=== PATIENT | male | born 1975 | race Caucasian/White ===

== ENCOUNTER 2018-02-12 19:32 | Emergency (ER) | payer OTHER ==
[2018-02-12 20:39] LABS: ADD MAN DIFF? NO
[2018-02-12 20:40] LABS: WHITE BLOOD COUNT 9.9 10^3/ul (4.8-10.8)
[2018-02-12 20:40] LABS: BASOPHILS % 0.3 % (0.0-2.0); EOSINOPHILS % 0.2 % (0.0-7.0); HEMATOCRIT 34.6 % (42.0-52.0); LYMPHOCYTES # 1.3 10^3/ul (0.8-2.9); LYMPHOCYTES % 13.6 % (15.0-51.0); MEAN CORPUSCULAR HEMOGLOBIN 28.5 pg (29.0-33.0); MEAN CORPUSCULAR HGB CONC 34.7 g/dl (32.0-37.0); MEAN CORPUSCULAR VOLUME 82.2 fl (82.0-101.0); MEAN PLATELET VOLUME 9.2 fl (7.4-10.4); MONOCYTE # 1.3 10^3/ul (0.3-0.9); MONOCYTES % 13.6 % (0.0-11.0); NEUTROPHIL # 7.1 10^3/ul (1.6-7.5); PLATELET COUNT 284 10^3/UL (140-415); RED BLOOD COUNT 4.21 10^6/ul (4.70-6.10); RED CELL DISTRIBUTION WIDTH 12.9 % (11.5-14.5)
[2018-02-12] MEDS: ACETAMINOPHEN 325 MG TAB PO (20:41)
[2018-02-12] MEDS: ONDANSETRON 4 MG INJ IV (20:41)
[2018-02-12] MEDS: PIPER-TAZO 3.375 GM IV (PMX) 100 ML IVPB (20:41)
[2018-02-12] MEDS: morphine 4 MG/ML VIAL IV (20:41)
[2018-02-12] MEDS: SODIUM CHLORIDE 0.9% 1L BAG IV* (20:42)
[2018-02-12] MEDS: SOD CHLORIDE 0.9% 100 ML (20:55)
[2018-02-12] MEDS: IOHEXOL 300MG/ML 150 ML BTL (20:55)
[2018-02-12 21:01] LABS: LACTIC ACID 0.8 mmol/L (0.5-2.0)
[2018-02-12 21:16] LABS: INR 1.21; PROTIME 15.5 Sec (11.9-14.9); PT RATIO 1.2
[2018-02-12 21:17] LABS: PARTIAL THROMBOPLASTIN TIME 31.6 Sec (25.0-35.0)
[2018-02-12 21:23] LABS: ADD UMIC YES; UR ASCORBIC ACID 40 mg/dL (NEGATIVE); UR BILIRUBIN (Dip) 1+ mg/dL (NEGATIVE); UR BLOOD (Dip) NEGATIVE (NEGATIVE); UR CLARITY CLEAR (CLEAR); UR COLOR AMBER (YELLOW); UR GLUCOSE (Dip) 1+ mg/dL (NEGATIVE); UR KETONES (Dip) TRACE mg/dL (NEGATIVE); UR LEUKOCYTE ESTERASE (Dip) NEGATIVE Leu/ul (NEGATIVE); UR MUCUS MODERATE /HPF (NONE SEEN); UR NITRITE (Dip) NEGATIVE (NEGATIVE); UR RBC 4 /HPF (0-5); UR SPECIFIC GRAVITY (Dip) 1.025 (1.003-1.030); UR TOTAL PROTEIN (Dip) 1+ mg/dl (NEGATIVE); UR UROBILINOGEN (Dip) 2+ mg/dL (NEGATIVE); UR WBC 3 /HPF (0-5)
[2018-02-12] MEDS: OLANZAPINE (ODT) 5 MG TAB ODT (21:39)
[2018-02-12] MEDS: VANCOMYCIN 1 GM (PMX) 250 ML IVPB (21:40)
[2018-02-12 22:12] LABS: ALANINE AMINOTRANSFERASE 62 IU/L (13-69); ALBUMIN 3.5 g/dl (3.3-4.9); ALBUMIN/GLOBULIN RATIO 1.02; ALKALINE PHOSPHATASE 114 IU/L (42-121); ASPARTATE AMINO TRANSFERASE 60 IU/L (15-46); BILIRUBIN,INDIRECT 0.8 mg/dl (0-1.1); BILIRUBIN,TOTAL 0.8 mg/dl (0.2-1.3); BLOOD UREA NITROGEN 7 mg/dl (7-20); CALCIUM 9.2 mg/dl (8.4-10.2); CARBON DIOXIDE 29 mmol/L (21-31); CHLORIDE 97 mmol/L (97-110); CREATININE 0.58 mg/dl (0.61-1.24); GLUCOSE 195 mg/dl (70-220); POTASSIUM 3.5 mmol/L (3.5-5.1); TOTAL PROTEIN 6.9 g/dl (6.1-8.1)
[2018-02-12 22:17] LABS: ANION GAP 11 (8-16); SODIUM 133 mmol/L (135-144)
[2018-02-12 22:23] LABS: TROPONIN-I < 0.010 ng/ml (0.000-0.120)
[2018-02-12 22:27] LABS: LACTIC ACID 0.7 mmol/L (0.5-2.0)
== END 2018-02-13 02:23 | disposition short-term general hospital (02) ==
LOC: E/R 02-13 02:23 → FTE 19:32
DX: L02.01 Cutaneous abscess of face (principal); A41.9 Sepsis, unspecified organism; I10 Essential (primary) hypertension; E11.9 Type 2 diabetes mellitus without complications; F17.210 Nicotine dependence, cigarettes, uncomplicated; S02.602A Fracture of unspecified part of body of left mandible, initial encounter for closed fracture; Y08.89XA Assault by other specified means, initial encounter; Z79.84 Long term (current) use of oral hypoglycemic drugs
CPT/HCPCS: 36415; 70486; 70491; 71045; 80053; 81001; 83605; 84484; 85025; 85610; 85730; 87040; 87086; 93005; 96374; 96375; 99291-25

== ENCOUNTER 2018-02-21 16:35 | Inpatient (IN) | payer OTHER ==
[2018-02-21] MEDS: KETOROLAC 30 MG INJ IV (17:28)
[2018-02-21] MEDS: SODIUM CHLORIDE 0.9% 1L BAG IV* (17:28)
[2018-02-21 17:40] LABS: WHITE BLOOD COUNT 12.2 10^3/ul (4.8-10.8)
[2018-02-21 17:40] LABS: ABNORMAL IP MESSAGE 1; HEMATOCRIT 35.9 % (42.0-52.0); HEMOGLOBIN 11.8 g/dl (14.0-18.0); MEAN CORPUSCULAR HEMOGLOBIN 28.2 pg (29.0-33.0); MEAN CORPUSCULAR HGB CONC 32.9 g/dl (32.0-37.0); MEAN CORPUSCULAR VOLUME 85.7 fl (82.0-101.0); MEAN PLATELET VOLUME 9.3 fl (7.4-10.4); PLATELET COUNT 430 10^3/UL (140-415); POSITIVE DIFF @See below; RED BLOOD COUNT 4.19 10^6/ul (4.70-6.10); RED CELL DISTRIBUTION WIDTH 13.6 % (11.5-14.5)
[2018-02-21 17:48] LABS: ADD MAN DIFF? YES
[2018-02-21 18:00] LABS: INR 1.14; PROTIME 14.8 Sec (11.9-14.9); PT RATIO 1.2
[2018-02-21 18:00] LABS: LACTIC ACID 1.8 mmol/L (0.5-2.0)
[2018-02-21 18:01] LABS: ALANINE AMINOTRANSFERASE 35 IU/L (13-69); ALBUMIN 3.7 g/dl (3.3-4.9); ALKALINE PHOSPHATASE 114 IU/L (42-121); ANION GAP 14 (8-16); ASPARTATE AMINO TRANSFERASE 39 IU/L (15-46); BILIRUBIN,INDIRECT 0.5 mg/dl (0-1.1); BILIRUBIN,TOTAL 0.5 mg/dl (0.2-1.3); BLOOD UREA NITROGEN 29 mg/dl (7-20); CALCIUM 9.5 mg/dl (8.4-10.2); CARBON DIOXIDE 27 mmol/L (21-31); CHLORIDE 103 mmol/L (97-110); GLUCOSE 105 mg/dl (70-220); PARTIAL THROMBOPLASTIN TIME 28.7 Sec (25.0-35.0); POTASSIUM 4.5 mmol/L (3.5-5.1); SODIUM 139 mmol/L (135-144); TOTAL PROTEIN 7.4 g/dl (6.1-8.1)
[2018-02-21 18:09] LABS: CREATININE 2.41 mg/dl (0.61-1.24)
[2018-02-21 18:12] LABS: TROPONIN-I < 0.010 ng/ml (0.000-0.120)
[2018-02-21 18:56] LABS: EOSINOPHILS % (M) 1 % (0-7); GIANT THROMBO% (M) 1 % (0-0); LYMPHOCYTES #M 1.7 10^3/ul (0.8-2.9); LYMPHOCYTES % (M) 14 % (15-51); MONOCYTES % (M) 9 % (0-11); PLATELET ESTIMATE NORMAL; SEGMENTED NEUTROPHILS (M) % 76 % (39-77); SMUDGE%M 2 % (0-0)
[2018-02-21 19:53] LABS: ADD UMIC YES; UR AMORPHOUS CRYSTAL FEW /HPF (NONE SEEN); UR ASCORBIC ACID 20 mg/dL (NEGATIVE); UR BACTERIA MANY /HPF (NONE SEEN); UR BILIRUBIN (Dip) NEGATIVE (NEGATIVE); UR BLOOD (Dip) 1+ mg/dL (NEGATIVE); UR CLARITY TURBID (CLEAR); UR COLOR AMBER (YELLOW); UR GLUCOSE (Dip) 3+ mg/dL (NEGATIVE); UR KETONES (Dip) NEGATIVE (NEGATIVE); UR LEUKOCYTE ESTERASE (Dip) NEGATIVE Leu/ul (NEGATIVE); UR MUCUS MODERATE /HPF (NONE SEEN); UR NITRITE (Dip) NEGATIVE (NEGATIVE); UR RBC 8 /HPF (0-5); UR SPECIFIC GRAVITY (Dip) 1.008 (1.003-1.030); UR TOTAL PROTEIN (Dip) NEGATIVE (NEGATIVE); UR UROBILINOGEN (Dip) NEGATIVE (NEGATIVE); UR WBC 7 /HPF (0-5)
[2018-02-21 20:43] LABS: LACTIC ACID 1.2 mmol/L (0.5-2.0)
[2018-02-21 21:38] LABS: LACTIC ACID 1.4 mmol/L (0.5-2.0)
[2018-02-21] MEDS: PIPER-TAZO 3.375 GM IV (PMX) 100 ML IVPB (21:42)
[2018-02-21] MEDS: VANCOMYCIN 1 GM (PMX) 250 ML IVPB (22:27)
[2018-02-21] MEDS ORDERED: NACL 0.9% 3 ML SYG IV (23:00)
[2018-02-21] MEDS ORDERED: VANCOMYCIN IV PER PHARMACY XX (23:00)
[2018-02-21] MEDS ORDERED: ACETAMINOPHEN 650 MG SUPP PR (23:00)
[2018-02-21] MEDS ORDERED: ONDANSETRON 4 MG INJ IV (23:00)
[2018-02-21] MEDS: morphine 4 MG/ML VIAL IV (23:23)
[2018-02-22] MEDS: PIPER-TAZO 3.375 GM IV (PMX) 100 ML IVPB ×2 (00:40→05:37)
[2018-02-22] MEDS: SOD CHLORIDE 0.9% 1,000 ML IV (00:41)
[2018-02-22] MEDS: morphine 2 MG INJ IV (02:45)
[2018-02-22] MEDS: CLINDAMYCIN 600 MG/D5W (PMX) 50 ML IVPB ×2 (02:46→05:36)
[2018-02-22 05:28] LABS: ADD MAN DIFF? NO
[2018-02-22 05:36] LABS: BASOPHILS % 0.5 % (0.0-2.0); EOSINOPHILS # 0.2 10^3/ul (0.0-0.5); EOSINOPHILS % 2.3 % (0.0-7.0); HEMATOCRIT 33.4 % (42.0-52.0); LYMPHOCYTES # 2.5 10^3/ul (0.8-2.9); LYMPHOCYTES % 38.1 % (15.0-51.0); MEAN CORPUSCULAR HGB CONC 32.9 g/dl (32.0-37.0); MEAN PLATELET VOLUME 9.4 fl (7.4-10.4); MONOCYTE # 0.8 10^3/ul (0.3-0.9); NEUTROPHILS % 46.8 % (39.0-77.0); PLATELET COUNT 335 10^3/UL (140-415); RED BLOOD COUNT 3.93 10^6/ul (4.70-6.10); RED CELL DISTRIBUTION WIDTH 13.8 % (11.5-14.5)
[2018-02-22 05:36] LABS: WHITE BLOOD COUNT 6.4 10^3/ul (4.8-10.8)
[2018-02-22 05:54] LABS: HEMOGLOBIN A1C 7.5 % (0-5.9)
[2018-02-22 05:56] LABS: ALANINE AMINOTRANSFERASE 33 IU/L (13-69); ALBUMIN 3.3 g/dl (3.3-4.9); ALKALINE PHOSPHATASE 97 IU/L (42-121); ANION GAP 10 (8-16); ASPARTATE AMINO TRANSFERASE 35 IU/L (15-46); BILIRUBIN,INDIRECT 0.6 mg/dl (0-1.1); BILIRUBIN,TOTAL 0.6 mg/dl (0.2-1.3); BLOOD UREA NITROGEN 23 mg/dl (7-20); CALCIUM 8.9 mg/dl (8.4-10.2); CARBON DIOXIDE 29 mmol/L (21-31); CHLORIDE 101 mmol/L (97-110); CHOL/HDL RATIO 3.7 RATIO; CHOLESTEROL 123 mg/dl (100-200); CREATININE 1.15 mg/dl (0.61-1.24); GLUCOSE 133 mg/dl (70-220); HDL CHOLESTEROL 33 mg/dl (27-67); LDL CHOLESTEROL,CALCULATED 77 mg/dl; MAGNESIUM 2.2 mg/dl (1.7-2.5); SODIUM 136 mmol/L (135-144); TOTAL PROTEIN 6.6 g/dl (6.1-8.1); TRIGLYCERIDES 67 mg/dl (0-149)
[2018-02-22 06:17] LABS: THYROID STIMULATING HORMONE 0.552 MIU/L (0.465-4.680)
[2018-02-22] MEDS ORDERED: BUSPIRONE 5 MG TAB PO (09:00)
[2018-02-22] MEDS ORDERED: LISINOPRIL 20 MG TAB PO (09:00)
[2018-02-22] MEDS ORDERED: VANCOMYCIN 1.5 GM in SOD CHLORIDE 0.9% 250 ML IVPB (15:00)
[2018-02-22] MEDS ORDERED: HALOPERIDOL 5 MG TAB PO (21:00)
[2018-02-22] MEDS ORDERED: ATORVASTATIN 40 MG TAB PO (21:00)
== END 2018-02-22 06:25 | disposition left against medical advice (07) | DRG 872 ==
LOC: 6WM 22:47 → E/R 16:35
DX: A41.9 Sepsis, unspecified organism (principal); F22 Delusional disorders; J98.2 Interstitial emphysema; I10 Essential (primary) hypertension; E11.9 Type 2 diabetes mellitus without complications; E78.5 Hyperlipidemia, unspecified; M27.2 Inflammatory conditions of jaws; F17.210 Nicotine dependence, cigarettes, uncomplicated; Z79.84 Long term (current) use of oral hypoglycemic drugs
CPT/HCPCS: 36415; 70486; 80053; 80061; 81001; 82962; 83036; 83605; 83735; 84443; 84484; 85025; 85610; 85730; 87040; 93005; 96365; 96375; 99291-25

== ENCOUNTER 2018-02-25 05:18 | Emergency (ER) | payer SELFPAY, OTHER | END 2018-02-25 07:31 | disposition left against medical advice (07) | LOC: FTE 05:18 | DX: Z53.21 Procedure and treatment not carried out due to patient leaving prior to being seen by health care provider (principal) ==

== ENCOUNTER 2018-03-02 11:56 | Emergency (ER) | payer OTHER | END 2018-03-02 12:00 | disposition home or self-care (01) | LOC: FTE 11:56 | DX: T81.31XA Disruption of external operation (surgical) wound, not elsewhere classified, initial encounter (principal); E11.9 Type 2 diabetes mellitus without complications; Y79.8 Miscellaneous orthopedic devices associated with adverse incidents, not elsewhere classified; Z79.82 Long term (current) use of aspirin; Z79.84 Long term (current) use of oral hypoglycemic drugs | CPT/HCPCS: 99284; Z7502 ==

== ENCOUNTER 2018-03-06 15:44 | Emergency (ER) | payer OTHER ==
[2018-03-06] MEDS: HYDROCODONE/APAP (5/325) TAB PO (16:40)
== END 2018-03-06 16:54 | disposition home or self-care (01) ==
LOC: FTE 15:44
DX: R68.84 Jaw pain (principal)
CPT/HCPCS: 99283; Z7502

== ENCOUNTER 2018-03-09 14:48 | Emergency (ER) | payer SELFPAY, OTHER | END 2018-03-09 15:12 | disposition left against medical advice (07) | LOC: E/R 15:12 | DX: Z53.21 Procedure and treatment not carried out due to patient leaving prior to being seen by health care provider (principal) ==

== ENCOUNTER 2018-03-12 07:34 | Emergency (ER) | payer OTHER | END 2018-03-12 08:55 | disposition home or self-care (01) | LOC: FTE 07:34 | DX: K13.0 Diseases of lips (principal) | CPT/HCPCS: 99282; Z7502 ==

== ENCOUNTER 2018-03-19 02:31 | Emergency (ER) | payer SELFPAY | END 2018-03-19 04:40 | disposition left against medical advice (07) | LOC: FTE 02:31 | DX: Z53.21 Procedure and treatment not carried out due to patient leaving prior to being seen by health care provider (principal) ==

== ENCOUNTER 2018-03-22 23:18 | Emergency (ER) | payer OTHER | END 2018-03-23 00:32 | disposition home or self-care (01) | LOC: FTE 23:18 | DX: K13.79 Other lesions of oral mucosa (principal); E11.9 Type 2 diabetes mellitus without complications; Z79.84 Long term (current) use of oral hypoglycemic drugs | CPT/HCPCS: 99282; Z7502 ==

== ENCOUNTER 2018-03-26 03:46 | Emergency (ER) | payer OTHER ==
[2018-03-26] MEDS: HYDROCODONE/APAP (5/325) TAB PO (04:22)
== END 2018-03-26 04:34 | disposition home or self-care (01) ==
LOC: FTE 04:34
DX: R68.84 Jaw pain (principal); E11.9 Type 2 diabetes mellitus without complications; F17.210 Nicotine dependence, cigarettes, uncomplicated; Z79.82 Long term (current) use of aspirin; Z79.84 Long term (current) use of oral hypoglycemic drugs; Z91.040 Latex allergy status
CPT/HCPCS: 99283; Z7610

== ENCOUNTER 2018-03-28 04:47 | Emergency (ER) | payer SELFPAY, OTHER | END 2018-03-28 07:17 | disposition left against medical advice (07) | LOC: FTE 07:17 | DX: Z53.21 Procedure and treatment not carried out due to patient leaving prior to being seen by health care provider (principal) ==

== ENCOUNTER 2018-03-29 21:58 | Emergency (ER) | payer SELFPAY, OTHER | END 2018-03-29 23:26 | disposition left against medical advice (07) | LOC: FTE 21:58 | DX: Z53.21 Procedure and treatment not carried out due to patient leaving prior to being seen by health care provider (principal) ==

== ENCOUNTER 2018-03-30 05:48 | Emergency (ER) | payer SELFPAY, OTHER | END 2018-03-30 07:20 | disposition left against medical advice (07) | LOC: FTE 07:20 | DX: Z53.21 Procedure and treatment not carried out due to patient leaving prior to being seen by health care provider (principal) ==

== ENCOUNTER 2018-04-01 13:55 | Emergency (ER) | payer SELFPAY | END 2018-04-01 17:40 | disposition left against medical advice (07) | LOC: FTE 13:55 | DX: Z53.21 Procedure and treatment not carried out due to patient leaving prior to being seen by health care provider (principal) ==

== ENCOUNTER 2018-04-02 03:22 | Emergency (ER) | payer SELFPAY | END 2018-04-02 08:32 | disposition left against medical advice (07) | LOC: FTE 03:22 | DX: Z53.21 Procedure and treatment not carried out due to patient leaving prior to being seen by health care provider (principal) ==

== ENCOUNTER 2018-04-06 04:17 | Emergency (ER) | payer OTHER | END 2018-04-06 04:38 | disposition home or self-care (01) | LOC: FTE 04:17 | DX: K13.79 Other lesions of oral mucosa (principal) | CPT/HCPCS: 99283; Z7502 ==

== ENCOUNTER 2018-04-10 09:51 | Emergency (ER) | payer OTHER ==
[2018-04-10] MEDS: ACETAMINOPHEN 500 MG TAB PO (11:13)
== END 2018-04-10 11:32 | disposition home or self-care (01) ==
LOC: FTE 09:51
DX: E11.621 Type 2 diabetes mellitus with foot ulcer (principal); L97.529 Non-pressure chronic ulcer of other part of left foot with unspecified severity; I10 Essential (primary) hypertension; Z79.82 Long term (current) use of aspirin; Z79.84 Long term (current) use of oral hypoglycemic drugs
CPT/HCPCS: 99283; Z7502

== ENCOUNTER 2018-04-11 04:19 | Emergency (ER) | payer SELFPAY, OTHER | END 2018-04-11 08:38 | disposition left against medical advice (07) | LOC: FTE 08:38 | DX: Z53.21 Procedure and treatment not carried out due to patient leaving prior to being seen by health care provider (principal) | CPT/HCPCS: 82962 ==

== ENCOUNTER 2018-04-15 22:53 | Emergency (ER) | payer SELFPAY | END 2018-04-16 00:55 | disposition left against medical advice (07) | LOC: FTE 22:53 | DX: Z53.21 Procedure and treatment not carried out due to patient leaving prior to being seen by health care provider (principal) ==

== ENCOUNTER 2018-04-17 02:56 | Emergency (ER) | payer OTHER ==
[2018-04-17] MEDS: IBUPROFEN 600 MG TAB PO (04:30)
== END 2018-04-17 04:30 | disposition home or self-care (01) ==
LOC: E/R 02:56
DX: L97.529 Non-pressure chronic ulcer of other part of left foot with unspecified severity (principal); E11.69 Type 2 diabetes mellitus with other specified complication; I10 Essential (primary) hypertension; Z79.82 Long term (current) use of aspirin; Z79.84 Long term (current) use of oral hypoglycemic drugs; Z91.040 Latex allergy status
CPT/HCPCS: 99282; Z7502

== ENCOUNTER 2018-04-18 03:39 | Emergency (ER) | payer SELFPAY, OTHER | END 2018-04-18 04:05 | disposition left against medical advice (07) | LOC: FTE 03:39 | DX: Z53.21 Procedure and treatment not carried out due to patient leaving prior to being seen by health care provider (principal) ==

== ENCOUNTER 2018-04-19 00:50 | Emergency (ER) | payer SELFPAY | END 2018-04-19 02:51 | disposition left against medical advice (07) | LOC: E/R 02:51 | DX: Z53.21 Procedure and treatment not carried out due to patient leaving prior to being seen by health care provider (principal) ==

== ENCOUNTER 2018-04-29 13:53 | Emergency (ER) | payer SELFPAY | END 2018-04-29 15:19 | disposition left against medical advice (07) | LOC: FTE 13:53 | DX: Z53.21 Procedure and treatment not carried out due to patient leaving prior to being seen by health care provider (principal) ==

== ENCOUNTER 2018-04-30 08:16 | Emergency (ER) | payer OTHER | END 2018-04-30 12:08 | disposition left against medical advice (07) | LOC: FTE 08:16 | DX: E11.621 Type 2 diabetes mellitus with foot ulcer (principal); L97.529 Non-pressure chronic ulcer of other part of left foot with unspecified severity; I10 Essential (primary) hypertension; Z79.82 Long term (current) use of aspirin; Z79.84 Long term (current) use of oral hypoglycemic drugs; Z91.040 Latex allergy status | CPT/HCPCS: 99283; Z7502 ==

== ENCOUNTER 2018-05-03 03:30 | Emergency (ER) | payer OTHER | END 2018-05-03 04:00 | disposition home or self-care (01) | LOC: FTE 03:30 | DX: E11.621 Type 2 diabetes mellitus with foot ulcer (principal); I10 Essential (primary) hypertension; F17.210 Nicotine dependence, cigarettes, uncomplicated; Z79.82 Long term (current) use of aspirin; Z79.84 Long term (current) use of oral hypoglycemic drugs | CPT/HCPCS: 99281 ==

== ENCOUNTER 2018-05-04 10:42 | Emergency (ER) | payer OTHER | END 2018-05-04 12:17 | disposition home or self-care (01) | LOC: E/R 10:42 | DX: S09.93XA Unspecified injury of face, initial encounter (principal); E11.9 Type 2 diabetes mellitus without complications; I10 Essential (primary) hypertension; X58.XXXA Exposure to other specified factors, initial encounter; Y92.9 Unspecified place or not applicable; Z79.82 Long term (current) use of aspirin; Z79.84 Long term (current) use of oral hypoglycemic drugs; Z91.040 Latex allergy status | CPT/HCPCS: 99282; Z7502 ==

== ENCOUNTER 2018-05-10 03:42 | Emergency (ER) | payer OTHER ==
[2018-05-10] MEDS: IBUPROFEN 600 MG TAB PO (04:12)
== END 2018-05-10 04:26 | disposition home or self-care (01) ==
LOC: FTE 03:42
DX: R68.84 Jaw pain (principal); I10 Essential (primary) hypertension; F17.210 Nicotine dependence, cigarettes, uncomplicated; E11.9 Type 2 diabetes mellitus without complications; Z79.82 Long term (current) use of aspirin; Z79.84 Long term (current) use of oral hypoglycemic drugs
CPT/HCPCS: 99282; Z7502

== ENCOUNTER 2018-05-18 06:22 | Emergency (ER) | payer SELFPAY, OTHER | END 2018-05-18 08:10 | disposition left against medical advice (07) | LOC: FTE 06:22 | DX: Z53.21 Procedure and treatment not carried out due to patient leaving prior to being seen by health care provider (principal) ==

== ENCOUNTER 2018-05-21 23:14 | Emergency (ER) | payer SELFPAY | END 2018-05-22 00:12 | disposition left against medical advice (07) | LOC: FTE 23:14 | DX: Z53.21 Procedure and treatment not carried out due to patient leaving prior to being seen by health care provider (principal) ==

== ENCOUNTER 2018-05-30 23:36 | Emergency (ER) | payer SELFPAY | END 2018-05-31 00:49 | disposition left against medical advice (07) | LOC: FTE 23:36 | DX: Z53.21 Procedure and treatment not carried out due to patient leaving prior to being seen by health care provider (principal) ==

== ENCOUNTER 2018-06-09 02:42 | Emergency (ER) | payer OTHER ==
[2018-06-09] MEDS ORDERED: KETOROLAC 60 MG INJ IM (02:56)
[2018-06-09] MEDS ORDERED: CLINDAMYCIN 600 MG INJ IM (03:00)
[2018-06-09] MEDS ORDERED: CLINDAMYCIN 300 MG INJ IM (03:30)
== END 2018-06-09 04:08 | disposition left against medical advice (07) ==
LOC: E/R 02:42
DX: R68.84 Jaw pain (principal); I10 Essential (primary) hypertension; E11.9 Type 2 diabetes mellitus without complications; Z79.82 Long term (current) use of aspirin; Z79.84 Long term (current) use of oral hypoglycemic drugs; Z87.891 Personal history of nicotine dependence
CPT/HCPCS: 99283; J1885

== ENCOUNTER 2018-06-12 14:47 | Emergency (ER) | payer SELFPAY, OTHER | END 2018-06-12 16:20 | disposition left against medical advice (07) | LOC: FTE 14:47 | DX: Z53.21 Procedure and treatment not carried out due to patient leaving prior to being seen by health care provider (principal) ==

== ENCOUNTER 2018-06-14 04:40 | Emergency (ER) | payer OTHER ==
[2018-06-14] MEDS: HYDROCODONE/APAP (5/325) TAB PO (05:13)
== END 2018-06-14 05:30 | disposition home or self-care (01) ==
LOC: FTE 04:40
DX: R68.84 Jaw pain (principal); I10 Essential (primary) hypertension; Z79.82 Long term (current) use of aspirin; Z79.84 Long term (current) use of oral hypoglycemic drugs; Z87.891 Personal history of nicotine dependence; Z91.040 Latex allergy status
CPT/HCPCS: 99283; Z7610

== ENCOUNTER 2018-06-23 02:14 | Emergency (ER) | payer OTHER | END 2018-06-23 02:40 | disposition home or self-care (01) | LOC: FTE 02:14 | DX: R68.84 Jaw pain (principal); R05 Cough; I10 Essential (primary) hypertension; F17.210 Nicotine dependence, cigarettes, uncomplicated; Z79.82 Long term (current) use of aspirin; Z79.84 Long term (current) use of oral hypoglycemic drugs | CPT/HCPCS: 99283; Z7502 ==

== ENCOUNTER 2018-06-29 11:53 | Emergency (ER) | payer SELFPAY, OTHER | END 2018-06-29 13:04 | disposition left against medical advice (07) | LOC: E/R 13:04 | DX: Z53.21 Procedure and treatment not carried out due to patient leaving prior to being seen by health care provider (principal) ==

== ENCOUNTER 2018-07-01 01:20 | Emergency (ER) | payer OTHER | END 2018-07-01 01:30 | disposition home or self-care (01) | LOC: E/R 01:20 | DX: R68.84 Jaw pain (principal); Z79.82 Long term (current) use of aspirin; Z79.84 Long term (current) use of oral hypoglycemic drugs | CPT/HCPCS: 99282; Z7502 ==

== ENCOUNTER 2018-07-17 09:07 | Inpatient (IN) | payer OTHER ==
[2018-07-17] MEDS: IBUPROFEN 800 MG TAB PO (09:37)
[2018-07-17 10:35] LABS: ADD MAN DIFF? NO
[2018-07-17] MEDS: SOD CHLORIDE 0.9% 1,000 ML IV (10:40)
[2018-07-17] MEDS: morphine 4 MG/ML VIAL IV (10:41)
[2018-07-17 10:48] LABS: WHITE BLOOD COUNT 7.5 10^3/ul (4.8-10.8)
[2018-07-17 10:48] LABS: BASOPHILS % 0.5 % (0.0-2.0); EOSINOPHILS # 0.3 10^3/ul (0.0-0.5); EOSINOPHILS % 3.7 % (0.0-7.0); HEMATOCRIT 41.1 % (42.0-52.0); HEMOGLOBIN 13.1 g/dl (14.0-18.0); LYMPHOCYTES # 1.2 10^3/ul (0.8-2.9); LYMPHOCYTES % 15.6 % (15.0-51.0); MEAN CORPUSCULAR HEMOGLOBIN 25.6 pg (29.0-33.0); MEAN CORPUSCULAR HGB CONC 31.9 g/dl (32.0-37.0); MEAN CORPUSCULAR VOLUME 80.3 fl (82.0-101.0); MONOCYTE # 0.8 10^3/ul (0.3-0.9); MONOCYTES % 10.7 % (0.0-11.0); NEUTROPHIL # 5.2 10^3/ul (1.6-7.5); PLATELET COUNT 243 10^3/UL (140-415); RED BLOOD COUNT 5.12 10^6/ul (4.70-6.10); RED CELL DISTRIBUTION WIDTH 15.6 % (11.5-14.5)
[2018-07-17 10:55] LABS: ALANINE AMINOTRANSFERASE 36 IU/L (13-69); ALBUMIN 4.2 g/dl (3.3-4.9); ALBUMIN/GLOBULIN RATIO 1.16; ALKALINE PHOSPHATASE 161 IU/L (42-121); ANION GAP 10 (5-13); ASPARTATE AMINO TRANSFERASE 27 IU/L (15-46); BILIRUBIN,INDIRECT 0.9 mg/dl (0-1.1); BILIRUBIN,TOTAL 0.9 mg/dl (0.2-1.3); BLOOD UREA NITROGEN 14 mg/dl (7-20); CALCIUM 9.7 mg/dl (8.4-10.2); CARBON DIOXIDE 31 mmol/L (21-31); CHLORIDE 101 mmol/L (97-110); CREATININE 0.55 mg/dl (0.61-1.24); Estimated GFR > 60 mL/min (>60); GLUCOSE 120 mg/dl (70-220); POTASSIUM 3.5 mmol/L (3.5-5.1); SODIUM 142 mmol/L (135-144); TOTAL PROTEIN 7.8 g/dl (6.1-8.1)
[2018-07-17 11:04] LABS: INR 1.02; PROTIME 13.5 Sec (11.9-14.9); PT RATIO 1.1
[2018-07-17 11:06] LABS: TROPONIN-I < 0.012 ng/ml (0.000-0.120)
[2018-07-17] MEDS ORDERED: ONDANSETRON 4 MG INJ IV ×2 (11:30→12:30)
[2018-07-17] MEDS ORDERED: ACETAMINOPHEN 325 MG TAB PO (11:30)
[2018-07-17] MEDS ORDERED: SOD CHLORIDE 0.45% 1,000 ML IV (12:08)
[2018-07-17] MEDS ORDERED: morphine 2 MG INJ IV (12:30)
[2018-07-17] MEDS ORDERED: NACL 0.9% 3 ML SYG IV (12:30)
[2018-07-17] MEDS ORDERED: GLUCAGON 1 MG INJ IM (13:00)
[2018-07-17] MEDS ORDERED: GLUCOSE GEL 15 GRAM TUBE PO ×2 (13:00)
[2018-07-17] MEDS ORDERED: GLUCOSE GEL 15 GRAM TUBE BUCCAL (13:00)
[2018-07-17] MEDS ORDERED: DEXTROSE 50% 50 ML SYRINGE IV ×2 (13:00)
[2018-07-17] MEDS: BUSPIRONE 10 MG TAB PO ×2 (13:00→20:16)
[2018-07-17] MEDS: morphine SULFATE/PF (2 MG/2 ML) SYG IV ×2 (14:34→20:15)
[2018-07-17 15:30] LABS: CREATINE KINASE 191 IU/L (23-200)
[2018-07-17 15:44] LABS: CK INDEX 2.6; TROPONIN-I < 0.012 ng/ml (0.000-0.120)
[2018-07-17 15:45] LABS: CK-MB 4.91 ng/ml (0.0-2.4)
[2018-07-17] MEDS: INSULIN ASPART [NOVOLOG] 3 ML PEN SC ×2 (18:34→20:29)
[2018-07-17] MEDS: SENNA TAB PO (20:16)
[2018-07-17] MEDS: ATORVASTATIN 40 MG TAB PO (20:16)
[2018-07-17] MEDS: HALOPERIDOL 5 MG TAB PO (21:47)
[2018-07-17 23:07] LABS: CREATINE KINASE 136 IU/L (23-200)
[2018-07-17 23:20] LABS: CK INDEX 2.9; TROPONIN-I < 0.012 ng/ml (0.000-0.120)
[2018-07-17 23:33] LABS: CK-MB 3.91 ng/ml (0.0-2.4)
[2018-07-18] MEDS: ACCU-CHEK XX (02:00)
[2018-07-18] MEDS: morphine SULFATE/PF (2 MG/2 ML) SYG IV ×2 (02:24→08:04)
[2018-07-18] MEDS: PANTOPRAZOLE (EC) 40 MG TAB PO (05:53)
[2018-07-18 06:13] LABS: ADD MAN DIFF? NO
[2018-07-18 06:15] LABS: BASOPHIL # 0.1 10^3/ul (0.0-0.1); BASOPHILS % 1.1 % (0.0-2.0); EOSINOPHILS # 0.4 10^3/ul (0.0-0.5); HEMATOCRIT 37.6 % (42.0-52.0); HEMOGLOBIN 12.1 g/dl (14.0-18.0); LYMPHOCYTES # 1.8 10^3/ul (0.8-2.9); LYMPHOCYTES % 28.3 % (15.0-51.0); MEAN CORPUSCULAR HEMOGLOBIN 25.5 pg (29.0-33.0); MEAN CORPUSCULAR HGB CONC 32.2 g/dl (32.0-37.0); MEAN CORPUSCULAR VOLUME 79.3 fl (82.0-101.0); MEAN PLATELET VOLUME 10.3 fl (7.4-10.4); MONOCYTE # 0.8 10^3/ul (0.3-0.9); MONOCYTES % 12.8 % (0.0-11.0); NEUTROPHIL # 3.3 10^3/ul (1.6-7.5); NEUTROPHILS % 51.5 % (39.0-77.0); PLATELET COUNT 229 10^3/UL (140-415); RED BLOOD COUNT 4.74 10^6/ul (4.70-6.10); RED CELL DISTRIBUTION WIDTH 15.8 % (11.5-14.5)
[2018-07-18 06:15] LABS: WHITE BLOOD COUNT 6.5 10^3/ul (4.8-10.8)
[2018-07-18 06:58] LABS: ALANINE AMINOTRANSFERASE 26 IU/L (13-69); ALBUMIN 3.5 g/dl (3.3-4.9); ALBUMIN/GLOBULIN RATIO 0.97; ALKALINE PHOSPHATASE 134 IU/L (42-121); ANION GAP 7 (5-13); ASPARTATE AMINO TRANSFERASE 20 IU/L (15-46); BILIRUBIN,INDIRECT 0.3 mg/dl (0-1.1); BILIRUBIN,TOTAL 0.3 mg/dl (0.2-1.3); BLOOD UREA NITROGEN 17 mg/dl (7-20); CALCIUM 9.1 mg/dl (8.4-10.2); CARBON DIOXIDE 27 mmol/L (21-31); CHLORIDE 105 mmol/L (97-110); CHOL/HDL RATIO 3.2 RATIO; CHOLESTEROL 135 mg/dl (100-200); CREATININE 0.74 mg/dl (0.61-1.24); Estimated GFR > 60 mL/min (>60); GLUCOSE 173 mg/dl (70-220); HDL CHOLESTEROL 41 mg/dl (27-67); LDL CHOLESTEROL,CALCULATED 80 mg/dl; MAGNESIUM 1.7 mg/dl (1.7-2.5); PHOSPHORUS 4.5 mg/dl (2.5-4.9); POTASSIUM 3.9 mmol/L (3.5-5.1); SODIUM 139 mmol/L (135-144); TOTAL PROTEIN 7.1 g/dl (6.1-8.1); TRIGLYCERIDES 72 mg/dl (0-149)
[2018-07-18] MEDS: INSULIN ASPART [NOVOLOG] 3 ML PEN SC ×4 (08:00→21:00)
[2018-07-18 08:23] LABS: HEMOGLOBIN A1C 7.7 % (0-5.9)
[2018-07-18] MEDS: BUSPIRONE 10 MG TAB PO ×3 (09:00→21:20)
[2018-07-18] MEDS: LISINOPRIL 20 MG TAB PO (09:00)
[2018-07-18] MEDS: SENNA TAB PO ×2 (09:00→21:19)
[2018-07-18] MEDS ORDERED: morphine SULFATE/PF (10 MG/10 ML) INJ (12:36)
[2018-07-18] MEDS ORDERED: MIDAZOLAM 1 MG/ML 2 ML INJ (12:36)
[2018-07-18] MEDS ORDERED: LIDOCAINE 2% (SDV) 5 ML INJ (14:21)
[2018-07-18] MEDS ORDERED: PROPOFOL 20 ML (14:21)
[2018-07-18] MEDS ORDERED: ROCURONIUM 50 MG INJ (14:21)
[2018-07-18] MEDS ORDERED: CEFAZOLIN 1 GM INJ (14:21)
[2018-07-18] MEDS ORDERED: ONDANSETRON 4 MG INJ (14:21)
[2018-07-18] MEDS ORDERED: HYDROmorphONE 1 MG/5 ML IV SYRINGE IV ×2 (14:30)
[2018-07-18] MEDS ORDERED: FENTAnyl 50 MCG/ML VIAL IV (14:30)
[2018-07-18] MEDS ORDERED: ONDANSETRON 4 MG INJ IV (14:30)
[2018-07-18] MEDS ORDERED: DIPHENHYDRAMINE 50 MG INJ IV (14:30)
[2018-07-18] MEDS ORDERED: NACL 0.9% 3 ML SYG IV (14:30)
[2018-07-18] MEDS ORDERED: MEPERIDINE 25 MG INJ IV (14:30)
[2018-07-18] MEDS ORDERED: NALOXONE (0.4 MG/ML) INJ IV (15:00)
[2018-07-18] MEDS: SOD CHLORIDE 0.9% 1,000 ML IV (16:42)
[2018-07-18] MEDS: CEFAZOLIN 2 GM/50 ML (PMX) 50 ML IVPB (16:42)
[2018-07-18] MEDS: ATORVASTATIN 40 MG TAB PO (21:00)
[2018-07-18] MEDS: HALOPERIDOL 5 MG TAB PO (21:19)
[2018-07-19] MEDS: CEFAZOLIN 2 GM/50 ML (PMX) 50 ML IVPB ×2 (00:28→08:49)
[2018-07-19] MEDS: ACCU-CHEK XX (01:56)
[2018-07-19] MEDS: SOD CHLORIDE 0.9% 1,000 ML IV (02:48)
[2018-07-19] MEDS: PANTOPRAZOLE (EC) 40 MG TAB PO (06:00)
[2018-07-19] MEDS: INSULIN ASPART [NOVOLOG] 3 ML PEN SC ×4 (08:00→20:20)
[2018-07-19] MEDS: BUSPIRONE 10 MG TAB PO ×3 (08:49→20:22)
[2018-07-19] MEDS: INFLUENZA VIRUS VACCINE 0.5 ML (DISPENSING) IM* (08:50)
[2018-07-19] MEDS: LISINOPRIL 20 MG TAB PO (08:50)
[2018-07-19] MEDS: SENNA TAB PO ×2 (08:50→20:22)
[2018-07-19] MEDS: ENOXAPARIN 40 MG/0.4 ML SYG SC (09:28)
[2018-07-19] MEDS: HALOPERIDOL 5 MG TAB PO ×2 (20:22→20:27)
[2018-07-19] MEDS: ATORVASTATIN 40 MG TAB PO (20:22)
[2018-07-20] MEDS: ACCU-CHEK XX (01:06)
[2018-07-20] MEDS: PANTOPRAZOLE (EC) 40 MG TAB PO (05:04)
[2018-07-20] MEDS: HYDROCODONE/APAP (5/325) TAB PO ×3 (07:40→20:30)
[2018-07-20] MEDS: ENOXAPARIN 40 MG/0.4 ML SYG SC (08:18)
[2018-07-20] MEDS: LISINOPRIL 20 MG TAB PO (08:18)
[2018-07-20] MEDS: SENNA TAB PO ×2 (08:19→20:49)
[2018-07-20] MEDS: INSULIN ASPART [NOVOLOG] 3 ML PEN SC ×4 (08:19→21:14)
[2018-07-20] MEDS: BUSPIRONE 10 MG TAB PO ×3 (08:20→20:48)
[2018-07-20] MEDS: HALOPERIDOL 5 MG TAB PO (20:49)
[2018-07-20] MEDS: ATORVASTATIN 40 MG TAB PO (20:49)
[2018-07-21] MEDS: HYDROCODONE/APAP (5/325) TAB PO ×3 (01:06→11:57)
[2018-07-21] MEDS: ACCU-CHEK XX (02:00)
[2018-07-21] MEDS: PANTOPRAZOLE (EC) 40 MG TAB PO (05:15)
[2018-07-21] MEDS: BUSPIRONE 10 MG TAB PO ×3 (08:03→20:38)
[2018-07-21] MEDS: LISINOPRIL 20 MG TAB PO (08:04)
[2018-07-21] MEDS: SENNA TAB PO ×2 (08:04→20:37)
[2018-07-21] MEDS: ENOXAPARIN 40 MG/0.4 ML SYG SC (08:28)
[2018-07-21] MEDS: INSULIN ASPART [NOVOLOG] 3 ML PEN SC ×5 (08:29→20:41)
[2018-07-21] MEDS: morphine 4 MG/ML VIAL IV (09:14)
[2018-07-21] MEDS ORDERED: morphine SULFATE/PF (2 MG/2 ML) SYG IV (11:30)
[2018-07-21 13:19] LABS: ADD MAN DIFF? NO
[2018-07-21 13:22] LABS: WHITE BLOOD COUNT 6.3 10^3/ul (4.8-10.8)
[2018-07-21 13:22] LABS: BASOPHIL # 0.1 10^3/ul (0.0-0.1); BASOPHILS % 0.8 % (0.0-2.0); EOSINOPHILS # 0.2 10^3/ul (0.0-0.5); EOSINOPHILS % 3.8 % (0.0-7.0); HEMATOCRIT 37.9 % (42.0-52.0); LYMPHOCYTES # 1.5 10^3/ul (0.8-2.9); LYMPHOCYTES % 24.3 % (15.0-51.0); MEAN CORPUSCULAR HEMOGLOBIN 25.6 pg (29.0-33.0); MEAN CORPUSCULAR HGB CONC 31.7 g/dl (32.0-37.0); MEAN CORPUSCULAR VOLUME 80.8 fl (82.0-101.0); MEAN PLATELET VOLUME 10.1 fl (7.4-10.4); MONOCYTE # 0.8 10^3/ul (0.3-0.9); MONOCYTES % 13.4 % (0.0-11.0); NEUTROPHIL # 3.6 10^3/ul (1.6-7.5); NEUTROPHILS % 57.4 % (39.0-77.0); PLATELET COUNT 236 10^3/UL (140-415); RED BLOOD COUNT 4.69 10^6/ul (4.70-6.10); RED CELL DISTRIBUTION WIDTH 15.5 % (11.5-14.5)
[2018-07-21 13:41] LABS: ANION GAP 9 (5-13); BLOOD UREA NITROGEN 16 mg/dl (7-20); CALCIUM 9.7 mg/dl (8.4-10.2); CARBON DIOXIDE 31 mmol/L (21-31); CHLORIDE 97 mmol/L (97-110); CREATININE 0.62 mg/dl (0.61-1.24); Estimated GFR > 60 mL/min (>60); GLUCOSE 245 mg/dl (70-220); POTASSIUM 4.8 mmol/L (3.5-5.1); SODIUM 137 mmol/L (135-144)
[2018-07-21] MEDS: morphine LIQ (10 MG/5 ML) CUP PO (18:09)
[2018-07-21] MEDS: ATORVASTATIN 40 MG TAB PO (20:34)
[2018-07-21] MEDS: HALOPERIDOL 5 MG TAB PO (20:38)
[2018-07-21] MEDS: INSULIN GLARGINE [LANTus] (100 UNITS/ML) SYG SC (20:44)
[2018-07-22] MEDS: ACCU-CHEK XX (02:00)
[2018-07-22] MEDS: PANTOPRAZOLE (EC) 40 MG TAB PO (05:36)
[2018-07-22] MEDS: morphine LIQ (10 MG/5 ML) CUP PO ×4 (05:36→20:43)
[2018-07-22] MEDS: INSULIN ASPART [NOVOLOG] 3 ML PEN SC ×7 (08:21→20:37)
[2018-07-22] MEDS: ENOXAPARIN 40 MG/0.4 ML SYG SC (08:22)
[2018-07-22] MEDS: LISINOPRIL 20 MG TAB PO (08:24)
[2018-07-22] MEDS: SENNA TAB PO ×2 (08:24→20:38)
[2018-07-22] MEDS: BUSPIRONE 10 MG TAB PO ×3 (08:24→20:38)
[2018-07-22] MEDS: INSULIN GLARGINE [LANTus] (100 UNITS/ML) SYG SC (20:36)
[2018-07-22] MEDS: ATORVASTATIN 40 MG TAB PO (20:38)
[2018-07-22] MEDS: HALOPERIDOL 5 MG TAB PO (20:38)
[2018-07-23] MEDS: ACCU-CHEK XX (02:11)
[2018-07-23] MEDS: morphine LIQ (10 MG/5 ML) CUP PO (02:11)
[2018-07-23] MEDS: INSULIN ASPART [NOVOLOG] 3 ML PEN SC ×5 (02:52→13:23)
[2018-07-23] MEDS: HYDROCODONE/APAP (5/325) TAB PO ×2 (04:59→12:39)
[2018-07-23] MEDS: PANTOPRAZOLE (EC) 40 MG TAB PO (04:59)
[2018-07-23] MEDS: SENNA TAB PO (08:35)
[2018-07-23] MEDS: BUSPIRONE 10 MG TAB PO ×2 (08:36→12:40)
[2018-07-23] MEDS: LISINOPRIL 20 MG TAB PO (08:37)
[2018-07-23] MEDS: ENOXAPARIN 40 MG/0.4 ML SYG SC (08:41)
== END 2018-07-23 17:25 | disposition home health service (06) | DRG 481 ==
LOC: E/R 09:07 → 2NE 11:10
PROC: 0QS706Z Reposition Left Upper Femur with Intramedullary Internal Fixation Device, Open Approach (ICD-10-PCS; principal; 2018-07-18 12:00)
DX: S72.142A Displaced intertrochanteric fracture of left femur, initial encounter for closed fracture (principal); E44.0 Moderate protein-calorie malnutrition; Z68.1 Body mass index [BMI] 19.9 or less, adult; I10 Essential (primary) hypertension; E11.9 Type 2 diabetes mellitus without complications; E78.5 Hyperlipidemia, unspecified; W11.XXXA Fall on and from ladder, initial encounter; F99 Mental disorder, not otherwise specified
CPT/HCPCS: 36415; 71045; 73500; 73510; 73530; 73550; 73700; 80048; 80053; 80061; 82550; 82553; 82962; 83036; 83735; 84100; 84443; 84484; 85025; 85610; 85730; 93005; 96374; 97110; 97116; 97161; 97530; 99291-25

== ENCOUNTER 2018-08-08 23:53 | Emergency (ER) | payer OTHER ==
[2018-08-09] MEDS: HYDROCODONE/APAP (10/325) TAB PO (01:06)
== END 2018-08-09 01:47 | disposition home or self-care (01) ==
LOC: E/R 23:53
DX: M25.552 Pain in left hip (principal); I10 Essential (primary) hypertension; F17.210 Nicotine dependence, cigarettes, uncomplicated; Z79.82 Long term (current) use of aspirin; Z79.84 Long term (current) use of oral hypoglycemic drugs; Z91.040 Latex allergy status
CPT/HCPCS: 99283; Z7502

== ENCOUNTER 2018-08-11 17:50 | Emergency (ER) | payer OTHER ==
[2018-08-11] MEDS: HYDROCODONE/APAP (5/325) TAB PO (21:19)
== END 2018-08-11 21:49 | disposition home or self-care (01) ==
LOC: FTE 17:50
DX: G89.29 Other chronic pain (principal); E11.9 Type 2 diabetes mellitus without complications; Z79.82 Long term (current) use of aspirin; Z79.84 Long term (current) use of oral hypoglycemic drugs
CPT/HCPCS: 99283; Z7502

== ENCOUNTER 2018-08-14 07:26 | Emergency (ER) | payer OTHER | END 2018-08-14 08:38 | disposition left against medical advice (07) | LOC: FTE 08:38 | DX: Z53.21 Procedure and treatment not carried out due to patient leaving prior to being seen by health care provider (principal) ==

== ENCOUNTER 2018-08-15 21:15 | Emergency (ER) | payer OTHER ==
[2018-08-16] MEDS ORDERED: HYDROCODONE/APAP (5/325) TAB PO (01:00)
== END 2018-08-16 01:23 | disposition home or self-care (01) ==
LOC: FTE 21:15
DX: G89.29 Other chronic pain (principal); E11.9 Type 2 diabetes mellitus without complications; Z79.82 Long term (current) use of aspirin; Z79.84 Long term (current) use of oral hypoglycemic drugs
CPT/HCPCS: 99282; Z7502

== ENCOUNTER 2018-08-20 21:27 | Emergency (ER) | payer SELFPAY, OTHER | END 2018-08-20 23:00 | disposition left against medical advice (07) | LOC: E/R 21:27 | DX: Z53.21 Procedure and treatment not carried out due to patient leaving prior to being seen by health care provider (principal) ==

== ENCOUNTER 2018-09-04 00:44 | Emergency (ER) | payer OTHER ==
[2018-09-04] MEDS: morphine 4 MG/ML VIAL IM (02:25)
[2018-09-04] MEDS: KETOROLAC 30 MG INJ IM (02:25)
== END 2018-09-04 03:34 | disposition left against medical advice (07) ==
LOC: FTE 00:44
DX: M25.552 Pain in left hip (principal); R68.84 Jaw pain; M54.42 Lumbago with sciatica, left side; Z79.82 Long term (current) use of aspirin; Z79.84 Long term (current) use of oral hypoglycemic drugs
CPT/HCPCS: 96372; 99284-25

== ENCOUNTER 2018-10-21 00:04 | Emergency (ER) | payer SELFPAY, OTHER | END 2018-10-21 02:00 | disposition left against medical advice (07) | LOC: FTE 00:04 | DX: Z53.21 Procedure and treatment not carried out due to patient leaving prior to being seen by health care provider (principal) | CPT/HCPCS: 82962 ==

== ENCOUNTER 2018-10-23 03:30 | Emergency (ER) | payer OTHER | END 2018-10-23 06:59 | disposition left against medical advice (07) | LOC: FTE 03:30 | DX: Z48.01 Encounter for change or removal of surgical wound dressing (principal) | CPT/HCPCS: 99281; Z7502 ==

== ENCOUNTER 2018-11-02 00:45 | Emergency (ER) | payer SELFPAY, OTHER | END 2018-11-02 02:00 | disposition left against medical advice (07) | LOC: FTE 00:45 | DX: Z53.21 Procedure and treatment not carried out due to patient leaving prior to being seen by health care provider (principal) ==

== ENCOUNTER 2018-11-13 12:46 | Emergency (ER) | payer OTHER ==
[2018-11-13] MEDS: IBUPROFEN 600 MG TAB PO (13:28)
[2018-11-13] MEDS: MUPIROCIN 2% 22 GM OINT TOP (13:28)
== END 2018-11-13 13:29 | disposition home or self-care (01) ==
LOC: E/R 12:46
DX: J00 Acute nasopharyngitis [common cold] (principal); E11.9 Type 2 diabetes mellitus without complications; S90.512A Abrasion, left ankle, initial encounter; X58.XXXA Exposure to other specified factors, initial encounter; Y92.9 Unspecified place or not applicable; Z79.82 Long term (current) use of aspirin; Z79.84 Long term (current) use of oral hypoglycemic drugs; Z91.040 Latex allergy status
CPT/HCPCS: 99283; Z7502

== ENCOUNTER 2018-11-15 01:48 | Emergency (ER) | payer OTHER ==
[2018-11-15] MEDS: IBUPROFEN 600 MG TAB PO (03:44)
== END 2018-11-15 05:35 | disposition home or self-care (01) ==
LOC: FTE 01:48
DX: S90.811A Abrasion, right foot, initial encounter (principal); F17.210 Nicotine dependence, cigarettes, uncomplicated; X58.XXXA Exposure to other specified factors, initial encounter; Y92.9 Unspecified place or not applicable; Z91.040 Latex allergy status; Z79.82 Long term (current) use of aspirin; Z79.84 Long term (current) use of oral hypoglycemic drugs
CPT/HCPCS: 99282; Z7610

== ENCOUNTER 2018-12-04 04:05 | Emergency (ER) | payer SELFPAY, OTHER | END 2018-12-04 07:17 | disposition left against medical advice (07) | LOC: FTE 04:05 | DX: Z53.21 Procedure and treatment not carried out due to patient leaving prior to being seen by health care provider (principal) ==

== ENCOUNTER 2018-12-05 04:52 | Emergency (ER) | payer OTHER | END 2018-12-05 06:12 | disposition home or self-care (01) | LOC: FTE 04:52 | DX: B35.1 Tinea unguium (principal); E11.9 Type 2 diabetes mellitus without complications; Z79.82 Long term (current) use of aspirin; Z79.84 Long term (current) use of oral hypoglycemic drugs; Z87.891 Personal history of nicotine dependence; Z91.040 Latex allergy status | CPT/HCPCS: 99283; Z7502 ==

== ENCOUNTER 2018-12-10 04:12 | Emergency (ER) | payer OTHER | END 2018-12-10 06:25 | disposition home or self-care (01) | LOC: FTE 06:25 | DX: B35.3 Tinea pedis (principal); E11.9 Type 2 diabetes mellitus without complications; Z79.82 Long term (current) use of aspirin; Z79.84 Long term (current) use of oral hypoglycemic drugs; Z87.891 Personal history of nicotine dependence | CPT/HCPCS: 73630; 73630-50; 99284-25 ==

== ENCOUNTER 2018-12-12 02:55 | Emergency (ER) | payer SELFPAY, OTHER | END 2018-12-12 03:00 | disposition left against medical advice (07) | LOC: E/R 02:55 | DX: Z53.21 Procedure and treatment not carried out due to patient leaving prior to being seen by health care provider (principal) ==

== ENCOUNTER 2018-12-15 15:41 | Emergency (ER) | payer SELFPAY, OTHER | END 2018-12-15 17:00 | disposition left against medical advice (07) | LOC: FTE 15:41 | DX: Z53.21 Procedure and treatment not carried out due to patient leaving prior to being seen by health care provider (principal) ==

== ENCOUNTER 2018-12-16 14:12 | Emergency (ER) | payer SELFPAY, OTHER | END 2018-12-16 21:03 | disposition left against medical advice (07) | LOC: E/R 21:03 | DX: Z53.21 Procedure and treatment not carried out due to patient leaving prior to being seen by health care provider (principal) ==

== ENCOUNTER 2018-12-18 10:27 | Emergency (ER) | payer SELFPAY, OTHER | END 2018-12-18 10:52 | disposition left against medical advice (07) | LOC: E/R 10:52 | DX: Z53.21 Procedure and treatment not carried out due to patient leaving prior to being seen by health care provider (principal) ==

== ENCOUNTER 2018-12-20 01:55 | Emergency (ER) | payer SELFPAY | END 2018-12-20 04:15 | disposition left against medical advice (07) | LOC: E/R 01:55 | DX: Z53.21 Procedure and treatment not carried out due to patient leaving prior to being seen by health care provider (principal) ==

== ENCOUNTER 2018-12-22 01:50 | Emergency (ER) | payer OTHER | END 2018-12-22 03:16 | disposition left against medical advice (07) | LOC: FTE 03:16 | DX: Z53.21 Procedure and treatment not carried out due to patient leaving prior to being seen by health care provider (principal) ==

== ENCOUNTER 2019-01-04 20:03 | Emergency (ER) | payer SELFPAY, OTHER | END 2019-01-04 21:30 | disposition left against medical advice (07) | LOC: E/R 21:30 | DX: Z53.21 Procedure and treatment not carried out due to patient leaving prior to being seen by health care provider (principal) ==

== ENCOUNTER 2019-01-06 03:53 | Emergency (ER) | payer SELFPAY, OTHER | END 2019-01-06 05:08 | disposition left against medical advice (07) | LOC: FTE 05:08 | DX: Z53.21 Procedure and treatment not carried out due to patient leaving prior to being seen by health care provider (principal) ==

== ENCOUNTER 2019-01-08 14:31 | Emergency (ER) | payer SELFPAY, OTHER | END 2019-01-08 16:00 | disposition left against medical advice (07) | LOC: FTE 14:31 | DX: Z53.21 Procedure and treatment not carried out due to patient leaving prior to being seen by health care provider (principal) ==

== ENCOUNTER 2019-01-08 23:01 | Emergency (ER) | payer OTHER | END 2019-01-09 00:33 | disposition home or self-care (01) | LOC: FTE 23:01 | DX: E11.621 Type 2 diabetes mellitus with foot ulcer (principal); L97.519 Non-pressure chronic ulcer of other part of right foot with unspecified severity; Z79.82 Long term (current) use of aspirin; Z79.84 Long term (current) use of oral hypoglycemic drugs; Z87.891 Personal history of nicotine dependence; Z91.040 Latex allergy status | CPT/HCPCS: 99283 ==

== ENCOUNTER 2019-01-11 14:28 | Emergency (ER) | payer SELFPAY, OTHER | END 2019-01-11 18:26 | disposition left against medical advice (07) | LOC: FTE 14:28 | DX: Z53.21 Procedure and treatment not carried out due to patient leaving prior to being seen by health care provider (principal) ==

== ENCOUNTER 2019-01-12 01:13 | Emergency (ER) | payer SELFPAY | END 2019-01-12 01:51 | disposition left against medical advice (07) | LOC: E/R 01:13 | DX: Z53.21 Procedure and treatment not carried out due to patient leaving prior to being seen by health care provider (principal) ==

== ENCOUNTER 2019-01-12 22:38 | Emergency (ER) | payer SELFPAY | END 2019-01-12 22:58 | disposition left against medical advice (07) | LOC: FTE 22:38 | DX: Z53.21 Procedure and treatment not carried out due to patient leaving prior to being seen by health care provider (principal) ==

== ENCOUNTER 2019-01-15 05:17 | Emergency (ER) | payer SELFPAY | END 2019-01-15 07:44 | disposition left against medical advice (07) | LOC: FTE 05:17 | DX: Z53.21 Procedure and treatment not carried out due to patient leaving prior to being seen by health care provider (principal) ==

== ENCOUNTER 2019-01-15 21:45 | Emergency (ER) | payer SELFPAY | END 2019-01-15 22:47 | disposition left against medical advice (07) | LOC: E/R 22:47 | DX: Z53.21 Procedure and treatment not carried out due to patient leaving prior to being seen by health care provider (principal) ==

== ENCOUNTER 2019-01-17 19:07 | Emergency (ER) | payer OTHER ==
[2019-01-17] MEDS: SODIUM CHLORIDE 0.9% 1L BAG IV* (19:29)
[2019-01-17 19:30] LABS: ADD MAN DIFF? NO
[2019-01-17] MEDS: ACETAMINOPHEN 325 MG TAB PO (19:31)
[2019-01-17 19:33] LABS: ABNORMAL IP MESSAGE 1; BASOPHIL # 0.1 10^3/ul (0.0-0.1); BASOPHILS % 0.3 % (0.0-2.0); HEMATOCRIT 38.6 % (42.0-52.0); HEMOGLOBIN 12.8 g/dl (14.0-18.0); LYMPHOCYTES # 0.4 10^3/ul (0.8-2.9); MEAN CORPUSCULAR HEMOGLOBIN 26.8 pg (29.0-33.0); MEAN CORPUSCULAR HGB CONC 33.2 g/dl (32.0-37.0); MEAN CORPUSCULAR VOLUME 80.9 fl (82.0-101.0); MEAN PLATELET VOLUME 9.9 fl (7.4-10.4); MONOCYTE # 1.3 10^3/ul (0.3-0.9); MONOCYTES % 6.5 % (0.0-11.0); NEUTROPHIL # 17.6 10^3/ul (1.6-7.5); NEUTROPHILS % 90.7 % (39.0-77.0); PLATELET COUNT 206 10^3/UL (140-415); POSITIVE DIFF @See below; RED BLOOD COUNT 4.77 10^6/ul (4.70-6.10); RED CELL DISTRIBUTION WIDTH 14.1 % (11.5-14.5)
[2019-01-17 19:33] LABS: WHITE BLOOD COUNT 19.4 10^3/ul (4.8-10.8)
[2019-01-17 19:52] LABS: ALANINE AMINOTRANSFERASE 48 IU/L (13-69); ALBUMIN 4.3 g/dl (3.3-4.9); ALKALINE PHOSPHATASE 145 IU/L (42-121); ANION GAP 12 (5-13); ASPARTATE AMINO TRANSFERASE 34 IU/L (15-46); BILIRUBIN,INDIRECT 0.9 mg/dl (0-1.1); BILIRUBIN,TOTAL 0.9 mg/dl (0.2-1.3); BLOOD UREA NITROGEN 9 mg/dl (7-20); CALCIUM 9.1 mg/dl (8.4-10.2); CARBON DIOXIDE 27 mmol/L (21-31); CHLORIDE 93 mmol/L (97-110); CREATININE 0.65 mg/dl (0.61-1.24); Estimated GFR > 60 mL/min (>60); GLUCOSE 189 mg/dl (70-220); INR 1.02; PROTIME 13.5 Sec (11.9-14.9); PT RATIO 1.1; SODIUM 132 mmol/L (135-144); TOTAL PROTEIN 8.2 g/dl (6.1-8.1)
[2019-01-17] MEDS: PIPER-TAZO 3.375 GM IV (PMX) 100 ML IVPB (19:52)
[2019-01-17 19:53] LABS: PARTIAL THROMBOPLASTIN TIME 25.8 Sec (23.0-35.0)
[2019-01-17 20:01] LABS: ETHANOL < 10.0 mg/dl (0-0)
[2019-01-17 20:03] LABS: TROPONIN-I 0.013 ng/ml (0.000-0.120)
[2019-01-17 20:06] LABS: URINE BLOOD (Dip) POC Negative (NEGATIVE); URINE GLUCOSE (Dip) POC Negative (NEGATIVE); URINE KETONES (Dip) POC Negative (NEGATIVE); URINE LEUKOCYTE EST (Dip) POC Negative (NEGATIVE); URINE NITRITE (Dip) POC Negative (NEGATIVE); URINE TOTAL PROTEIN POC Negative (NEGATIVE)
[2019-01-17 20:20] LABS: ADD UMIC NO; UR ASCORBIC ACID NEGATIVE (NEGATIVE); UR BILIRUBIN (Dip) NEGATIVE (NEGATIVE); UR BLOOD (Dip) NEGATIVE (NEGATIVE); UR CLARITY CLEAR (CLEAR); UR COLOR YELLOW (YELLOW); UR GLUCOSE (Dip) NEGATIVE (NEGATIVE); UR KETONES (Dip) NEGATIVE (NEGATIVE); UR LEUKOCYTE ESTERASE (Dip) NEGATIVE Leu/ul (NEGATIVE); UR NITRITE (Dip) NEGATIVE (NEGATIVE); UR TOTAL PROTEIN (Dip) NEGATIVE (NEGATIVE); UR UROBILINOGEN (Dip) NEGATIVE (NEGATIVE)
[2019-01-17] MEDS: IBUPROFEN 600 MG TAB PO (20:21)
[2019-01-17] MEDS: VANCOMYCIN 1 GM (PMX) 250 ML IVPB (20:26)
[2019-01-17 20:33] LABS: BARBITURATES Negative (NEGATIVE); BENZODIAZEPINES Negative (NEGATIVE); CANNABINOIDS Positive (NEGATIVE); COCAINE Negative (NEGATIVE); OPIATES Negative (NEGATIVE)
[2019-01-17 20:44] LABS: AMPHETAMINE/METHAMPHETAMINE POSITIVE (NEGATIVE)
[2019-01-17] MEDS ORDERED: ONDANSETRON 4 MG INJ IV (21:30)
[2019-01-17] MEDS ORDERED: ACETAMINOPHEN 325 MG TAB PO (21:30)
[2019-01-17 21:50] LABS: LACTIC ACID 1.9 mmol/L (0.5-2.0)
[2019-01-17 23:51] LABS: LACTIC ACID 1.4 mmol/L (0.5-2.0)
[2019-01-18] MEDS ORDERED: ONDANSETRON 4 MG INJ IV (01:00)
[2019-01-18] MEDS ORDERED: ACETAMINOPHEN 325 MG TAB PO (01:00)
[2019-01-18] MEDS ORDERED: ALBUTEROL/IPRATROPIUM (NEB) 3 ML AMP HHN (01:00)
[2019-01-18] MEDS ORDERED: NACL 0.9% 3 ML SYG IV (01:00)
[2019-01-18] MEDS ORDERED: DEXTROSE 50% 50 ML SYRINGE IV ×2 (01:30)
[2019-01-18] MEDS ORDERED: GLUCOSE GEL 15 GRAM TUBE PO ×2 (01:30)
[2019-01-18] MEDS ORDERED: GLUCAGON 1 MG INJ IM (01:30)
[2019-01-18] MEDS ORDERED: GLUCOSE GEL 15 GRAM TUBE BUCCAL (01:30)
[2019-01-18] MEDS: SOD CHLORIDE 0.9% 1,000 ML IV (02:19)
[2019-01-18] MEDS: VANCOMYCIN 750 MG (PMX) 250 ML IVPB (02:19)
[2019-01-18 05:39] LABS: ADD MAN DIFF? NO
[2019-01-18 05:42] LABS: WHITE BLOOD COUNT 10.2 10^3/ul (4.8-10.8)
[2019-01-18 05:42] LABS: ABNORMAL IP MESSAGE 1; BASOPHILS % 0.3 % (0.0-2.0); EOSINOPHILS % 0.1 % (0.0-7.0); HEMATOCRIT 33.7 % (42.0-52.0); HEMOGLOBIN 11.1 g/dl (14.0-18.0); LYMPHOCYTES # 0.6 10^3/ul (0.8-2.9); LYMPHOCYTES % 5.8 % (15.0-51.0); MEAN CORPUSCULAR HEMOGLOBIN 26.8 pg (29.0-33.0); MEAN CORPUSCULAR HGB CONC 32.9 g/dl (32.0-37.0); MEAN CORPUSCULAR VOLUME 81.4 fl (82.0-101.0); MEAN PLATELET VOLUME 10.6 fl (7.4-10.4); MONOCYTE # 0.7 10^3/ul (0.3-0.9); MONOCYTES % 6.7 % (0.0-11.0); NEUTROPHIL # 8.9 10^3/ul (1.6-7.5); NEUTROPHILS % 86.7 % (39.0-77.0); PLATELET COUNT 140 10^3/UL (140-415); POSITIVE DIFF @See below; RED BLOOD COUNT 4.14 10^6/ul (4.70-6.10); RED CELL DISTRIBUTION WIDTH 14.6 % (11.5-14.5)
[2019-01-18 06:25] LABS: ALANINE AMINOTRANSFERASE 54 IU/L (13-69); ALBUMIN 3.1 g/dl (3.3-4.9); ALBUMIN/GLOBULIN RATIO 0.96; ALKALINE PHOSPHATASE 120 IU/L (42-121); ANION GAP 7 (5-13); ASPARTATE AMINO TRANSFERASE 58 IU/L (15-46); BILIRUBIN,INDIRECT 0.5 mg/dl (0-1.1); BILIRUBIN,TOTAL 0.5 mg/dl (0.2-1.3); BLOOD UREA NITROGEN 9 mg/dl (7-20); CALCIUM 8.5 mg/dl (8.4-10.2); CARBON DIOXIDE 25 mmol/L (21-31); CHLORIDE 107 mmol/L (97-110); CREATININE 0.54 mg/dl (0.61-1.24); Estimated GFR > 60 mL/min (>60); GLUCOSE 192 mg/dl (70-220); MAGNESIUM 1.7 mg/dl (1.7-2.5); POTASSIUM 3.6 mmol/L (3.5-5.1); SODIUM 139 mmol/L (135-144); TOTAL PROTEIN 6.3 g/dl (6.1-8.1)
[2019-01-18] MEDS ORDERED: metFORMIN 500 MG TAB PO (08:00)
[2019-01-18] MEDS ORDERED: BUSPIRONE 10 MG TAB PO (09:00)
[2019-01-18] MEDS ORDERED: ASPIRIN 81 MG TAB PO (09:00)
[2019-01-18] MEDS ORDERED: CEFEPIME 1GM/50 ML (PMX) 50 ML IVPB (09:00)
[2019-01-18] MEDS ORDERED: HEPARIN 5,000 UNIT/1 ML VIAL SC (09:00)
[2019-01-18] MEDS ORDERED: VANCOMYCIN IV PER PHARMACY XX (09:00)
[2019-01-18] MEDS ORDERED: LISINOPRIL 20 MG TAB PO (09:00)
[2019-01-18] MEDS ORDERED: VANCOMYCIN HCL 1.25 GM in SOD CHLORIDE 0.9% 250 ML IVPB (14:00)
[2019-01-18] MEDS ORDERED: ATORVASTATIN 40 MG TAB PO (21:00)
== END 2019-01-18 06:56 | disposition left against medical advice (07) ==
LOC: E/R 01-18 06:56
DX: D64.9 Anemia, unspecified (principal); R65.10 Systemic inflammatory response syndrome (SIRS) of non-infectious origin without acute organ dysfunction; I10 Essential (primary) hypertension; E11.9 Type 2 diabetes mellitus without complications; R06.02 Shortness of breath; Z79.82 Long term (current) use of aspirin; Z79.84 Long term (current) use of oral hypoglycemic drugs
CPT/HCPCS: 71045; 80053; 80307; 81003; 82962; 83605; 83735; 84484; 85025; 85610; 85730; 87040-91; 87086; 93005; 96374; 96375; 99285-25

== ENCOUNTER 2019-01-19 00:32 | Inpatient (IN) | payer OTHER ==
[2019-01-19 01:15] LABS: HEMATOCRIT 34.4 % (42.0-52.0); HEMOGLOBIN 11.1 g/dl (14.0-18.0); MEAN CORPUSCULAR HEMOGLOBIN 26.8 pg (29.0-33.0); MEAN CORPUSCULAR HGB CONC 32.3 g/dl (32.0-37.0); MEAN CORPUSCULAR VOLUME 83.1 fl (82.0-101.0); MEAN PLATELET VOLUME 10.1 fl (7.4-10.4); PLATELET COUNT 171 10^3/UL (140-415); RED BLOOD COUNT 4.14 10^6/ul (4.70-6.10); RED CELL DISTRIBUTION WIDTH 14.6 % (11.5-14.5)
[2019-01-19 01:15] LABS: WHITE BLOOD COUNT 6.2 10^3/ul (4.8-10.8)
[2019-01-19] MEDS: PIPER-TAZO 3.375 GM IV (PMX) 100 ML IVPB (01:19)
[2019-01-19 01:23] LABS: ADD MAN DIFF? YES
[2019-01-19 01:35] LABS: INR 1.11; PROTIME 14.4 Sec (11.9-14.9); PT RATIO 1.1
[2019-01-19 01:36] LABS: PARTIAL THROMBOPLASTIN TIME 32.6 Sec (23.0-35.0)
[2019-01-19 01:39] LABS: ALANINE AMINOTRANSFERASE 67 IU/L (13-69); ALBUMIN 3.7 g/dl (3.3-4.9); ALBUMIN/GLOBULIN RATIO 1.02; ALKALINE PHOSPHATASE 130 IU/L (42-121); ANION GAP 8 (5-13); ASPARTATE AMINO TRANSFERASE 53 IU/L (15-46); BILIRUBIN,INDIRECT 0.3 mg/dl (0-1.1); BILIRUBIN,TOTAL 0.3 mg/dl (0.2-1.3); BLOOD UREA NITROGEN 11 mg/dl (7-20); CARBON DIOXIDE 26 mmol/L (21-31); CHLORIDE 108 mmol/L (97-110); CREATININE 0.69 mg/dl (0.61-1.24); Estimated GFR > 60 mL/min (>60); GLUCOSE 273 mg/dl (70-220); POTASSIUM 3.9 mmol/L (3.5-5.1); SODIUM 142 mmol/L (135-144); TOTAL PROTEIN 7.3 g/dl (6.1-8.1)
[2019-01-19] MEDS: VANCOMYCIN 1 GM (PMX) 250 ML IVPB (01:47)
[2019-01-19 01:50] LABS: TROPONIN-I < 0.012 ng/ml (0.000-0.120)
[2019-01-19 02:09] LABS: BASOPHIL #M 0.1 10^3/ul (0.0-0.0); BASOPHILS % (M) 2 % (0-2); EOSINOPHILS % (M) 1 % (0-7); LYMPHOCYTES #M 1.1 10^3/ul (0.8-2.9); LYMPHOCYTES % (M) 18 % (15-51); MONOCYTE #M 0.4 10^3/ul (0.3-0.9); MONOCYTES % (M) 8 % (0-11); PLATELET ESTIMATE NORMAL; SEGMENTED NEUTROPHILS (M) % 71 % (39-77); SMUDGE%M 11 % (0-0)
[2019-01-19 02:25] LABS: ADD UMIC YES; UR ASCORBIC ACID NEGATIVE (NEGATIVE); UR BILIRUBIN (Dip) NEGATIVE (NEGATIVE); UR BLOOD (Dip) 1+ mg/dL (NEGATIVE); UR CLARITY CLEAR (CLEAR); UR COLOR YELLOW (YELLOW); UR GLUCOSE (Dip) 3+ mg/dL (NEGATIVE); UR KETONES (Dip) NEGATIVE (NEGATIVE); UR LEUKOCYTE ESTERASE (Dip) NEGATIVE Leu/ul (NEGATIVE); UR NITRITE (Dip) NEGATIVE (NEGATIVE); UR RBC 10 /HPF (0-5); UR SPECIFIC GRAVITY (Dip) 1.022 (1.003-1.030); UR TOTAL PROTEIN (Dip) NEGATIVE (NEGATIVE); UR UROBILINOGEN (Dip) NEGATIVE (NEGATIVE); UR WBC 1 /HPF (0-5)
[2019-01-19] MEDS ORDERED: ONDANSETRON 4 MG INJ IV (03:00)
[2019-01-19] MEDS ORDERED: NACL 0.9% 3 ML SYG IV (03:00)
[2019-01-19] MEDS ORDERED: ACETAMINOPHEN 325 MG TAB PO ×2 (03:00→16:00)
[2019-01-19] MEDS ORDERED: ALBUTEROL/IPRATROPIUM (NEB) 3 ML AMP HHN (03:00)
[2019-01-19] MEDS: LABETALOL HCL 20MG INJ IV (03:14)
[2019-01-19] MEDS: VANCOMYCIN 750 MG (PMX) 250 ML IVPB (03:58)
[2019-01-19 04:18] LABS: LACTIC ACID 0.8 mmol/L (0.5-2.0)
[2019-01-19] MEDS: SOD CHLORIDE 0.9% 1,000 ML IV ×2 (06:16→12:53)
[2019-01-19] MEDS: hydrALAzine 20 MG INJ IV (06:17)
[2019-01-19 06:50] LABS: LACTIC ACID 0.9 mmol/L (0.5-2.0)
[2019-01-19] MEDS: ACCU-CHEK XX ×3 (07:00→17:08)
[2019-01-19] MEDS: BUSPIRONE 10 MG TAB PO ×2 (08:34→12:27)
[2019-01-19] MEDS: metFORMIN 500 MG TAB PO ×2 (08:35→17:14)
[2019-01-19] MEDS: LISINOPRIL 20 MG TAB PO (08:36)
[2019-01-19] MEDS: ASPIRIN 81 MG TAB PO (08:36)
[2019-01-19] MEDS: HEPARIN 5,000 UNIT/1 ML VIAL SC (08:43)
[2019-01-19] MEDS ORDERED: VANCOMYCIN IV PER PHARMACY XX (09:00)
[2019-01-19 10:02] LABS: BASOPHIL # 0.1 10^3/ul (0.0-0.1); BASOPHILS % 0.8 % (0.0-2.0); NEUTROPHILS % 65.7 % (39.0-77.0)
[2019-01-19 10:20] LABS: EOSINOPHILS # 0.1 10^3/ul (0.0-0.5); EOSINOPHILS % 0.8 % (0.0-7.0); LYMPHOCYTES # 1.1 10^3/ul (0.8-2.9); LYMPHOCYTES % 17.4 % (15.0-51.0); MONOCYTE # 0.9 10^3/ul (0.3-0.9); NEUTROPHIL # 4.1 10^3/ul (1.6-7.5)
[2019-01-19] MEDS ORDERED: GLUCAGON 1 MG INJ IM (13:30)
[2019-01-19] MEDS ORDERED: DEXTROSE 50% 50 ML SYRINGE IV ×2 (13:30)
[2019-01-19] MEDS ORDERED: GLUCOSE GEL 15 GRAM TUBE PO ×2 (13:30)
[2019-01-19] MEDS ORDERED: GLUCOSE GEL 15 GRAM TUBE BUCCAL (13:30)
[2019-01-19] MEDS: INSULIN ASPART [NOVOLOG] 3 ML PEN SC ×2 (13:43→17:11)
[2019-01-19] MEDS: VANCOMYCIN HCL 1.25 GM in SOD CHLORIDE 0.9% 250 ML IVPB (13:45)
[2019-01-19] MEDS: OXYMETAZOLINE 0.05% 15 ML NAS SPRAY NASAL (16:00)
[2019-01-19] MEDS ORDERED: ALBUTEROL HFA 8 GM INHALER INH (16:00)
[2019-01-19] MEDS ORDERED: INSULIN ASPART [NOVOLOG] 3 ML PEN SC (18:00)
[2019-01-19] MEDS ORDERED: NICOTINE (14 MG/24 HR) PATCH TRANSDERM (19:30)
[2019-01-19] MEDS ORDERED: ATORVASTATIN 40 MG TAB PO (21:00)
[2019-01-20] MEDS ORDERED: ENOXAPARIN 40 MG/0.4 ML SYG SC (09:00)
== END 2019-01-19 21:17 | disposition left against medical advice (07) | DRG 872 ==
LOC: E/R 00:32 → 5EC 01:55
PROVIDERS: Internal Medicine
DX: R78.81 Bacteremia (principal); D64.9 Anemia, unspecified; I10 Essential (primary) hypertension; E11.9 Type 2 diabetes mellitus without complications; E78.5 Hyperlipidemia, unspecified; F41.9 Anxiety disorder, unspecified; Z72.0 Tobacco use; F15.10 Other stimulant abuse, uncomplicated; E88.81 Metabolic syndrome and other insulin resistance; Z91.19 Patient's noncompliance with other medical treatment and regimen
CPT/HCPCS: 36415; 80053; 81001; 82962; 83605; 84484; 85025; 85610; 85730; 87040-91; 87086; 93005; 96365; 96375; 99285-25

== ENCOUNTER 2019-01-20 20:03 | Emergency (ER) | payer SELFPAY, OTHER | END 2019-01-21 00:57 | disposition left against medical advice (07) | LOC: E/R 20:03 | DX: Z53.21 Procedure and treatment not carried out due to patient leaving prior to being seen by health care provider (principal) ==

== ENCOUNTER 2019-01-22 14:30 | Emergency (ER) | payer SELFPAY, OTHER | END 2019-01-22 15:39 | disposition left against medical advice (07) | LOC: E/R 15:39 | DX: Z53.21 Procedure and treatment not carried out due to patient leaving prior to being seen by health care provider (principal) ==

== ENCOUNTER 2019-01-23 05:36 | Emergency (ER) | payer SELFPAY | END 2019-01-23 07:51 | disposition left against medical advice (07) | LOC: E/R 05:36 | DX: Z53.21 Procedure and treatment not carried out due to patient leaving prior to being seen by health care provider (principal) ==

== ENCOUNTER 2019-01-24 14:22 | Emergency (ER) | payer OTHER | END 2019-01-24 15:04 | disposition home or self-care (01) | LOC: E/R 14:22 | DX: Z00.00 Encounter for general adult medical examination without abnormal findings (principal); I10 Essential (primary) hypertension; E11.9 Type 2 diabetes mellitus without complications; Z79.82 Long term (current) use of aspirin; Z79.84 Long term (current) use of oral hypoglycemic drugs; Z87.891 Personal history of nicotine dependence | CPT/HCPCS: 99283; Z7502 ==

== ENCOUNTER 2019-01-26 05:25 | Emergency (ER) | payer OTHER | END 2019-01-26 05:47 | disposition home or self-care (01) | LOC: E/R 05:25 | DX: R05 Cough (principal); E11.9 Type 2 diabetes mellitus without complications; I10 Essential (primary) hypertension; Z79.82 Long term (current) use of aspirin; Z79.84 Long term (current) use of oral hypoglycemic drugs; Z87.891 Personal history of nicotine dependence | CPT/HCPCS: 99283; Z7502 ==

== ENCOUNTER 2019-01-29 23:24 | Emergency (ER) | payer OTHER | END 2019-01-30 00:18 | disposition home or self-care (01) | LOC: E/R 01-30 00:18 | DX: M25.552 Pain in left hip (principal); R51 Headache; I10 Essential (primary) hypertension; E11.9 Type 2 diabetes mellitus without complications; Z79.82 Long term (current) use of aspirin; Z79.84 Long term (current) use of oral hypoglycemic drugs; Z87.891 Personal history of nicotine dependence; Z91.040 Latex allergy status | CPT/HCPCS: 99282; Z7502 ==

== ENCOUNTER → 2019-01-29 | Emergency (ER) | payer OTHER | END | disposition home or self-care (01) | LOC: E/R 16:57 | DX: R79.89 Other specified abnormal findings of blood chemistry (principal); E11.9 Type 2 diabetes mellitus without complications; Z79.82 Long term (current) use of aspirin; Z79.84 Long term (current) use of oral hypoglycemic drugs | CPT/HCPCS: 99282-25; Z7502 ==

== ENCOUNTER 2019-02-01 03:56 | Emergency (ER) | payer SELFPAY, OTHER | END 2019-02-01 04:15 | disposition left against medical advice (07) | LOC: E/R 03:56 | DX: Z53.21 Procedure and treatment not carried out due to patient leaving prior to being seen by health care provider (principal) ==

== ENCOUNTER 2019-02-05 05:08 | Emergency (ER) | payer OTHER | END 2019-02-05 06:14 | disposition left against medical advice (07) | LOC: FTE 06:14 | DX: Z53.21 Procedure and treatment not carried out due to patient leaving prior to being seen by health care provider (principal) ==

== ENCOUNTER 2019-02-05 14:00 | Emergency (ER) | payer OTHER ==
[2019-02-05] MEDS: HYDROCODONE/APAP (5/325) TAB PO (15:12)
== END 2019-02-05 15:18 | disposition home or self-care (01) ==
LOC: FTE 14:00
DX: K08.9 Disorder of teeth and supporting structures, unspecified (principal); E11.9 Type 2 diabetes mellitus without complications; Z79.82 Long term (current) use of aspirin; Z79.84 Long term (current) use of oral hypoglycemic drugs; Z91.040 Latex allergy status
CPT/HCPCS: 99283; Z7502

== ENCOUNTER 2019-02-07 16:38 | Emergency (ER) | payer OTHER | END 2019-02-07 16:54 | disposition home or self-care (01) | LOC: E/R 16:54 | DX: L84 Corns and callosities (principal); I10 Essential (primary) hypertension; Z79.82 Long term (current) use of aspirin; Z79.84 Long term (current) use of oral hypoglycemic drugs; Z87.891 Personal history of nicotine dependence; Z91.040 Latex allergy status | CPT/HCPCS: 99282; Z7502 ==

== ENCOUNTER 2019-02-11 10:23 | Emergency (ER) | payer SELFPAY, OTHER | END 2019-02-11 12:00 | disposition left against medical advice (07) | LOC: FTE 10:23 | DX: Z53.21 Procedure and treatment not carried out due to patient leaving prior to being seen by health care provider (principal) ==

== ENCOUNTER 2019-02-12 02:52 | Emergency (ER) | payer SELFPAY | END 2019-02-12 03:06 | disposition left against medical advice (07) | LOC: FTE 02:52 | DX: Z53.21 Procedure and treatment not carried out due to patient leaving prior to being seen by health care provider (principal) ==

== ENCOUNTER 2019-02-15 11:29 | Emergency (ER) | payer OTHER | END 2019-02-15 12:11 | disposition home or self-care (01) | LOC: E/R 11:29 | DX: M79.605 Pain in left leg (principal); F17.210 Nicotine dependence, cigarettes, uncomplicated; E11.9 Type 2 diabetes mellitus without complications; Z79.4 Long term (current) use of insulin; Z79.82 Long term (current) use of aspirin; Z91.040 Latex allergy status | CPT/HCPCS: 99282 ==

== ENCOUNTER 2019-02-16 11:05 | Emergency (ER) | payer OTHER | END 2019-02-16 13:10 | disposition home or self-care (01) | LOC: FTE 11:05 | DX: M25.552 Pain in left hip (principal); F17.210 Nicotine dependence, cigarettes, uncomplicated; Z79.82 Long term (current) use of aspirin; Z79.84 Long term (current) use of oral hypoglycemic drugs; Z91.040 Latex allergy status | CPT/HCPCS: 73502; 73510; 99283-25 ==

== ENCOUNTER 2019-02-17 04:01 | Emergency (ER) | payer OTHER ==
[2019-02-17] MEDS: ONDANSETRON (ODT) 4 MG TAB ODT (05:04)
[2019-02-17] MEDS: HYDROCODONE/APAP (10/325) TAB PO (05:05)
== END 2019-02-17 05:07 | disposition home or self-care (01) ==
LOC: FTE 04:01
DX: M25.552 Pain in left hip (principal); G89.29 Other chronic pain; F17.210 Nicotine dependence, cigarettes, uncomplicated; Z79.82 Long term (current) use of aspirin; Z79.84 Long term (current) use of oral hypoglycemic drugs
CPT/HCPCS: 99283; Z7502

== ENCOUNTER 2019-02-21 09:19 | Emergency (ER) | payer OTHER ==
[2019-02-21] MEDS: IBUPROFEN 600 MG TAB PO (10:34)
== END 2019-02-21 12:00 | disposition left against medical advice (07) ==
LOC: E/R 09:19
DX: M25.552 Pain in left hip (principal); G89.29 Other chronic pain; I10 Essential (primary) hypertension; E11.9 Type 2 diabetes mellitus without complications; Z79.82 Long term (current) use of aspirin; Z87.891 Personal history of nicotine dependence; Z91.040 Latex allergy status; Z79.84 Long term (current) use of oral hypoglycemic drugs
CPT/HCPCS: 99282; Z7502

== ENCOUNTER 2019-02-21 22:17 | Emergency (ER) | payer OTHER | END 2019-02-21 22:30 | disposition home or self-care (01) | LOC: E/R 22:17 | DX: K13.79 Other lesions of oral mucosa (principal); Z79.82 Long term (current) use of aspirin; Z87.891 Personal history of nicotine dependence; Z79.84 Long term (current) use of oral hypoglycemic drugs | CPT/HCPCS: 99282; Z7502 ==

== ENCOUNTER 2019-02-24 00:57 | Emergency (ER) | payer SELFPAY, OTHER | END 2019-02-24 02:00 | disposition left against medical advice (07) | LOC: E/R 00:57 | DX: Z53.21 Procedure and treatment not carried out due to patient leaving prior to being seen by health care provider (principal) ==

== ENCOUNTER 2019-02-27 12:09 | Emergency (ER) | payer OTHER | END 2019-02-27 14:07 | disposition home or self-care (01) | LOC: E/R 12:09 | DX: M79.671 Pain in right foot (principal); I10 Essential (primary) hypertension; E11.9 Type 2 diabetes mellitus without complications; M79.672 Pain in left foot; Z59.0 Homelessness; Z79.82 Long term (current) use of aspirin; Z79.84 Long term (current) use of oral hypoglycemic drugs; Z87.891 Personal history of nicotine dependence | CPT/HCPCS: 99282; Z7502 ==

== ENCOUNTER 2019-02-27 23:08 | Emergency (ER) | payer SELFPAY, OTHER | END 2019-02-27 23:26 | disposition left against medical advice (07) | LOC: E/R 23:08 | DX: Z53.21 Procedure and treatment not carried out due to patient leaving prior to being seen by health care provider (principal) ==

== ENCOUNTER 2019-03-02 00:31 | Emergency (ER) | payer SELFPAY | END 2019-03-02 00:36 | disposition left against medical advice (07) | LOC: E/R 00:31 | DX: Z53.21 Procedure and treatment not carried out due to patient leaving prior to being seen by health care provider (principal) ==

== ENCOUNTER 2019-03-08 00:32 | Emergency (ER) | payer OTHER ==
[2019-03-08] MEDS ORDERED: DIPHENHYDRAMINE 25 MG CAP (02:53)
[2019-03-08] MEDS ORDERED: predniSONE 20 MG TAB (02:54)
[2019-03-08] MEDS ORDERED: FAMOTIDINE 20 MG TAB (02:54)
== END 2019-03-08 04:51 | disposition home or self-care (01) ==
LOC: FTE 04:51
DX: T63.441A Toxic effect of venom of bees, accidental (unintentional), initial encounter (principal); F19.10 Other psychoactive substance abuse, uncomplicated; I10 Essential (primary) hypertension; E11.9 Type 2 diabetes mellitus without complications; F17.210 Nicotine dependence, cigarettes, uncomplicated; Z79.82 Long term (current) use of aspirin; Z79.84 Long term (current) use of oral hypoglycemic drugs
CPT/HCPCS: 99282; Z7502

== ENCOUNTER 2019-03-10 00:10 | Emergency (ER) | payer SELFPAY, OTHER | END 2019-03-10 01:54 | disposition left against medical advice (07) | LOC: FTE 00:10 | DX: Z53.21 Procedure and treatment not carried out due to patient leaving prior to being seen by health care provider (principal) ==

== ENCOUNTER 2019-03-10 04:26 | Emergency (ER) | payer OTHER ==
[2019-03-10] MEDS: FAMOTIDINE 20 MG TAB PO (05:55)
[2019-03-10] MEDS: IBUPROFEN 800 MG TAB PO (05:55)
== END 2019-03-10 05:57 | disposition home or self-care (01) ==
LOC: FTE 04:26
DX: M72.2 Plantar fascial fibromatosis (principal); G89.29 Other chronic pain; F17.210 Nicotine dependence, cigarettes, uncomplicated; I10 Essential (primary) hypertension; E11.9 Type 2 diabetes mellitus without complications; Z79.82 Long term (current) use of aspirin; Z79.84 Long term (current) use of oral hypoglycemic drugs
CPT/HCPCS: 93005; 99283-25

== ENCOUNTER 2019-03-10 22:40 | Emergency (ER) | payer SELFPAY, OTHER | END 2019-03-10 23:30 | disposition left against medical advice (07) | LOC: E/R 23:30 | DX: Z53.21 Procedure and treatment not carried out due to patient leaving prior to being seen by health care provider (principal) ==

== ENCOUNTER 2019-03-14 12:25 | Emergency (ER) | payer OTHER | END 2019-03-14 12:57 | disposition home or self-care (01) | LOC: E/R 12:57 → FTE 12:25 → E/R 12:57 | DX: M79.605 Pain in left leg (principal); E11.9 Type 2 diabetes mellitus without complications; I10 Essential (primary) hypertension; Z79.82 Long term (current) use of aspirin; Z79.84 Long term (current) use of oral hypoglycemic drugs; Z87.891 Personal history of nicotine dependence | CPT/HCPCS: 99282; Z7502 ==

== ENCOUNTER 2019-03-15 13:04 | Emergency (ER) | payer SELFPAY, OTHER | END 2019-03-15 13:27 | disposition left against medical advice (07) | LOC: E/R 13:27 | DX: Z53.21 Procedure and treatment not carried out due to patient leaving prior to being seen by health care provider (principal) ==

== ENCOUNTER 2019-03-19 01:08 | Emergency (ER) | payer SELFPAY, OTHER | END 2019-03-19 02:00 | disposition left against medical advice (07) | LOC: E/R 01:08 | DX: Z53.21 Procedure and treatment not carried out due to patient leaving prior to being seen by health care provider (principal) ==

== ENCOUNTER 2019-03-21 00:28 | Emergency (ER) | payer OTHER ==
[2019-03-21] MEDS: ASPIRIN (EC) 325 MG TAB PO (01:30)
[2019-03-21 02:03] LABS: ADD MAN DIFF? NO
[2019-03-21 02:06] LABS: BASOPHILS % 0.4 % (0.0-2.0); EOSINOPHILS % 0.3 % (0.0-7.0); HEMOGLOBIN 12.8 g/dl (14.0-18.0); LYMPHOCYTES # 1.6 10^3/ul (0.8-2.9); LYMPHOCYTES % 17.3 % (15.0-51.0); MEAN CORPUSCULAR HEMOGLOBIN 26.2 pg (29.0-33.0); MEAN CORPUSCULAR HGB CONC 31.2 g/dl (32.0-37.0); MEAN CORPUSCULAR VOLUME 83.8 fl (82.0-101.0); MONOCYTES % 10.2 % (0.0-11.0); NEUTROPHIL # 6.7 10^3/ul (1.6-7.5); NEUTROPHILS % 71.6 % (39.0-77.0); PLATELET COUNT 300 10^3/UL (140-415); RED BLOOD COUNT 4.89 10^6/ul (4.70-6.10); RED CELL DISTRIBUTION WIDTH 14.4 % (11.5-14.5)
[2019-03-21 02:06] LABS: WHITE BLOOD COUNT 9.4 10^3/ul (4.8-10.8)
[2019-03-21 02:28] LABS: ANION GAP 6 (5-13); BLOOD UREA NITROGEN 16 mg/dl (7-20); CALCIUM 9.9 mg/dl (8.4-10.2); CARBON DIOXIDE 31 mmol/L (21-31); CHLORIDE 103 mmol/L (97-110); CREATININE 0.71 mg/dl (0.61-1.24); Estimated GFR > 60 mL/min (>60); GLUCOSE 185 mg/dl (70-220); POTASSIUM 3.7 mmol/L (3.5-5.1); SODIUM 140 mmol/L (135-144)
[2019-03-21 02:41] LABS: TROPONIN-I < 0.012 ng/ml (0.000-0.120)
== END 2019-03-21 03:41 | disposition left against medical advice (07) ==
LOC: FTE 00:28
DX: M79.602 Pain in left arm (principal); R07.9 Chest pain, unspecified; E11.9 Type 2 diabetes mellitus without complications; F17.210 Nicotine dependence, cigarettes, uncomplicated; Z79.82 Long term (current) use of aspirin; Z79.84 Long term (current) use of oral hypoglycemic drugs
CPT/HCPCS: 80048; 84484; 85025; 93005; 99284-25

== ENCOUNTER 2019-03-24 07:05 | Emergency (ER) | payer OTHER ==
[2019-03-24] MEDS: IBUPROFEN 800 MG TAB PO (07:29)
== END 2019-03-24 08:04 | disposition home or self-care (01) ==
LOC: FTE 07:05
DX: M79.605 Pain in left leg (principal); E11.9 Type 2 diabetes mellitus without complications; F17.210 Nicotine dependence, cigarettes, uncomplicated; M79.604 Pain in right leg; Z79.84 Long term (current) use of oral hypoglycemic drugs; Z79.82 Long term (current) use of aspirin
CPT/HCPCS: 99282; Z7502

== ENCOUNTER 2019-03-24 13:46 | Emergency (ER) | payer OTHER | END 2019-03-24 14:10 | disposition left against medical advice (07) | LOC: E/R 14:10 | DX: M79.671 Pain in right foot (principal); Z79.82 Long term (current) use of aspirin; Z87.891 Personal history of nicotine dependence | CPT/HCPCS: 99282; Z7502 ==

== ENCOUNTER 2019-03-25 03:15 | Emergency (ER) | payer SELFPAY, OTHER | END 2019-03-25 04:02 | disposition left against medical advice (07) | LOC: E/R 03:15 | DX: Z53.21 Procedure and treatment not carried out due to patient leaving prior to being seen by health care provider (principal) ==

== ENCOUNTER 2019-03-27 20:49 | Emergency (ER) | payer OTHER ==
[2019-03-27] MEDS: KETOROLAC 15 MG INJ IM (21:09)
== END 2019-03-27 21:16 | disposition home or self-care (01) ==
LOC: E/R 20:49
DX: M79.10 Myalgia, unspecified site (principal); T73.0XXS Starvation, sequela; F17.210 Nicotine dependence, cigarettes, uncomplicated; I10 Essential (primary) hypertension; E11.9 Type 2 diabetes mellitus without complications; Z79.82 Long term (current) use of aspirin; Z79.84 Long term (current) use of oral hypoglycemic drugs; Z91.040 Latex allergy status
CPT/HCPCS: 96372; 99284-25

== ENCOUNTER 2019-03-30 20:00 | Emergency (ER) | payer OTHER | END 2019-03-30 20:14 | disposition home or self-care (01) | LOC: E/R 20:00 | DX: J06.9 Acute upper respiratory infection, unspecified (principal); F17.210 Nicotine dependence, cigarettes, uncomplicated; Z79.82 Long term (current) use of aspirin; Z79.84 Long term (current) use of oral hypoglycemic drugs | CPT/HCPCS: 99282; Z7502 ==

== ENCOUNTER → 2019-04-03 | Emergency (ER) | payer OTHER ==
[2019-04-03] MEDS: IBUPROFEN 800 MG TAB PO (21:02)
== END | disposition home or self-care (01) ==
LOC: FTE 20:24
DX: K08.89 Other specified disorders of teeth and supporting structures (principal); F17.210 Nicotine dependence, cigarettes, uncomplicated; E11.9 Type 2 diabetes mellitus without complications; Z79.82 Long term (current) use of aspirin; Z79.84 Long term (current) use of oral hypoglycemic drugs; Z91.040 Latex allergy status
CPT/HCPCS: 99282; Z7502

== ENCOUNTER 2019-04-04 22:22 | Emergency (ER) | payer SELFPAY, OTHER | END 2019-04-04 23:16 | disposition left against medical advice (07) | LOC: E/R 22:22 | DX: Z53.21 Procedure and treatment not carried out due to patient leaving prior to being seen by health care provider (principal) | CPT/HCPCS: 93005 ==

== ENCOUNTER 2019-04-05 05:25 | Emergency (ER) | payer OTHER ==
[2019-04-05] MEDS: IBUPROFEN 600 MG TAB PO (05:55)
== END 2019-04-05 05:56 | disposition home or self-care (01) ==
LOC: E/R 05:25
DX: R07.9 Chest pain, unspecified (principal)
CPT/HCPCS: 93005; 99283-25

== ENCOUNTER 2019-04-08 01:47 | Emergency (ER) | payer OTHER ==
[2019-04-08] MEDS: IBUPROFEN 800 MG TAB PO (02:06)
== END 2019-04-08 02:36 | disposition home or self-care (01) ==
LOC: E/R 01:47
DX: T85.848A Pain due to other internal prosthetic devices, implants and grafts, initial encounter (principal); G89.29 Other chronic pain; F17.210 Nicotine dependence, cigarettes, uncomplicated; Y82.8 Other medical devices associated with adverse incidents; Z76.5 Malingerer [conscious simulation]; Z79.82 Long term (current) use of aspirin; Z79.84 Long term (current) use of oral hypoglycemic drugs
CPT/HCPCS: 99282; Z7502

== ENCOUNTER 2019-04-11 19:06 | Emergency (ER) | payer SELFPAY, OTHER | END 2019-04-11 21:36 | disposition left against medical advice (07) | LOC: E/R 19:06 | DX: Z53.21 Procedure and treatment not carried out due to patient leaving prior to being seen by health care provider (principal) ==

== ENCOUNTER 2019-04-15 03:32 | Emergency (ER) | payer OTHER | END 2019-04-15 04:55 | disposition left against medical advice (07) | LOC: E/R 03:32 | DX: M79.10 Myalgia, unspecified site (principal); R10.9 Unspecified abdominal pain; I10 Essential (primary) hypertension; E11.9 Type 2 diabetes mellitus without complications; F17.210 Nicotine dependence, cigarettes, uncomplicated; Z59.0 Homelessness; Z79.82 Long term (current) use of aspirin; Z79.84 Long term (current) use of oral hypoglycemic drugs; Z91.040 Latex allergy status | CPT/HCPCS: 99283; Z7502 ==